=== PATIENT | male | born 1930 | race Caucasian/White ===

== ENCOUNTER 2020-10-12 09:24 | Inpatient (IN) ==
[2020-10-12] MEDS ORDERED: NITROGLYCERIN SL 0.4 MG/TAB TAB SL STA (09:29)
[2020-10-12] MEDS ORDERED: SODIUM CHLORIDE 0.9% 1000ML 500 ML IV ONE (09:30)
--- NOTE | 2020-10-12 09:36 | Emergency Department Note ---
History of Present Illness General Chief Complaint: Chest Pain Stated Complaint: Chest Pain COVID+ Time Seen by Provider: 10/12/20 09:29 Source: patient, EMS, RN notes reviewed and old records reviewed Mode of arrival: EMS Limitations: no limitations History of Present Illness Provider Complaint: chest pain Onset (ago): day(s) 1 Duration: constant Onset: after eating Pain Location: substernal and left chest Pain Radiation: LUE, back and neck Severity: moderate Current Pain Intensity: 8 Quality: + aching Relieved By: + nitroglycerin Exacerbated By: + movement Context: + recent illness (Covid 19) Associated symptoms: + dyspnea; no nausea, no vomiting, no diaphoresis, no sense of impending doom, no syncope, no palpitations, no fever, no cough and no leg swelling Treatments prior to arrival: aspirin This is an 89-year-old male who presents emergency department complaint of chest pain that started last evening. The patient reports that the pain kept him up all night and that he has not taken anything for the pain. He reports exertion makes the pain worse however immobilization makes the pain better. He was given 324 mg of aspirin in route to the hospital. The patient has a recent diagnosis of Covid pneumonia. Home Medications Medication Instructions Recorded Confirmed Type acetaminophen 650 mg PO Q6H PRN 10/12/20 10/12/20 History amoxicillin 500 mg PO TID 10/12/20 10/12/20 History benzonatate [Tessalon Perles] 100 mg PO Q8H PRN 10/12/20 10/12/20 History bisacodyl [Dulcolax (bisacodyl)] 10 mg RI DAILY PRN 10/12/20 10/12/20 History finasteride [Proscar] 5 mg PO DAILY 10/12/20 10/12/20 History melatonin 5 mg PO HS PRN 10/12/20 10/12/20 History metoprolol tartrate 50 mg PO BID 10/12/20 10/12/20 History multivitamin 1 tab PO DAILY 10/12/20 10/12/20 History omega-3 fatty acids [Jackson 3 Fish 2,000 mg PO BID 10/12/20 10/12/20 History Oil] Allergies Allergy/AdvReac Type Severity Reaction Status Date / Time Sulfa (Sulfonamide Allergy Unknown Unknown Verified 10/12/20 13:08 Antibiotics) Past Med/Surg History Medical History Acquired hemolytic anemia Epigastric pain Heartburn Hematuria Hypertension Ileus Other inflammatory diseases of prostate Type 2 diabetes mellitus Urinary retention Surgical History History of urologic surgery Social History Smoking Status: Never smoker Hx Alcohol Use: No Hx Substance Use: No Preferred Language: Urdu Communication Ability: Effective Beliefs That Will Affect Care: None Current Living Situation: Alone Other Information That Helps Us Care for You: No Feels Safe at Home: Yes Assistive Devices: None Review of Systems A total of 10 systems reviewed and were otherwise negative Physical Exam Vital Signs Vital Signs - 24 hr 10/12/20 11:45 Pulse Rate [Apical] 82 Pulse Rhythm [Apical] Regular Respiratory Rate 16 Respiratory Effort / Characteristics Non-Labored Spontaneous Respiratory Depth Normal Respiratory Pattern Regular Blood Pressure [Left Arm] 142/70 H Blood Pressure Mean [Left Arm] 94 Blood Pressure Position [Left Arm] Lying Pulse Oximetry 96 Oxygen Delivery Method Room Air VITAL SIGNS - Vital signs and nursing notes were reviewed. GENERAL - 89-year-old male appearing stated age who is in moderate distress. Communicates well with provider and answers questions appropriately. SKIN - pale in appearance HEAD - NC/AT. EYES - PERRL with EOMI bilaterally. Sclera anicteric. Palpebral conjunctiva pink and moist with no injection noted. EARS - No deformities of external structures noted on gross examination bilate rally. No pain elicited with palpation of the tragus bilaterally. External auditory canals without discharge or otorrhea. Tympanic membranes pearly nicholson without retraction or bulging. No fluid or purulent material visualized behind the TM. Handle of malleus, umbo, cone of light, pars tensa/flaccid all easily visualized. NOSE - Midline and without cyanosis. No epistaxis or purulent drainage noted. Septum midline without deviation or septal hematoma noted. MOUTH/OROPHARYNX - Without perioral cyanosis. Buccal mucosa pink and moist and without leukoplakia. Tongue midline with equal elevation of palate bilaterally. No tonsillar hypertrophy, erythema, or exudates noted. dentition noted. NECK - Neck with FROM. Supple to palpation. lymphadenopathy noted. No nuchal rigidity. LUNGS - Chest wall symmetric without accessory muscle use, intercostals retractions, or central cyanosis. Normal vesicular breath sounds CTA B/L. No wheezes, rales, or rhonchi appreciated. CARDIAC - RRR with S1/S2. No murmur, rubs, or gallops appreciated. ABDOMEN - Abdominal contour without pulsations or visible masses. BS normoactive all four quadrants. No tenderness, palpable masses, hepatosplenomegaly, or ascites noted. EXTREMITIES - No clubbing or peripheral cyanosis. No pretibial edema present. +3/5 radial, posterior tibial, and dorsalis pedis pulses palpated throughout. +5/5 strength noted in UE/LE bilaterally. NEUROLOGIC - Cranial nerves II through XII grossly intact. Sensory intact to light touch throughout. Patellar reflexes +2/4. PSYCH - A&Ox3 and cooperates fully with examiner. Pt is very pleasant and interacts well with examiner. Course Administered Medications Amoxicillin (Amoxicillin 500 Mg Cap) 500 mg PO TID [facility] Stop: 10/22/20 20:59 Last Admin: 10/13/20 07:48 Dose: 500 mg Documented by: [id number] Admin: 10/12/20 21:23 Dose: 500 mg Documented by: [id number] Aspirin (Aspirin 81 Mg Ectab) 81 mg PO [facility] Stop: 11/12/20 08:59 Last Admin: 10/13/20 07:49 Dose: 81 mg Documented by: [id number] Atorvastatin Calcium (Atorvastatin 40 Mg Tab) 40 mg PO [facility] Stop: 11/12/20 08:59 Last Admin: 10/13/20 07:50 Dose: 40 mg Documented by: [id number] Clopidogrel Bisulfate (Clopidogrel Bisulfate 75 Mg Tab) 75 mg PO [facility] Stop: 11/12/20 08:59 Last Admin: 10/13/20 07:48 Dose: 75 mg Documented by: [id number] Enoxaparin Sodium (Enoxaparin Inj 40 Mg/0.4 Ml Syr) 40 mg SQ [facility] Stop: 11/12/20 08:59 Last Admin: 10/13/20 07:51 Dose: 40 mg Documented by: [id number] Finasteride (Finasteride 5 Mg Tab) 5 mg PO DAILY [facility] Stop: 11/12/20 08:59 Last Admin: 10/13/20 07:51 Dose: 5 mg Documented by: [id number] Insulin Aspart (Insulin Aspart 100 Units/Ml 3 Ml Pen) 0 units SC Q4 [facility]; Protocol Stop: 11/11/20 15:59 Last Admin: 10/13/20 08:30 Dose: 6 units Documented by: [id number] Cosigned by: [id number] Admin: 10/13/20 04:03 Dose: Not Given Documented by: [id number] Cosigned by: [id number] Admin: 10/13/20 01:05 Dose: 3 units Documented by: [id number] Cosigned by: [id number] Admin: 10/12/20 21:25 Dose: 7 units Documented by: [id number] Cosigned by: [id number] Admin: 10/12/20 17:27 Dose: 12 units Documented by: [id number] Cosigned by: [id number] Insulin Glargine (Insulin Glargine Solostar 100 Units/Ml 3 Ml Pen) 11 units SC Q12 [facility] Stop: 11/12/20 08:59 Last Admin: 10/13/20 08:28 Dose: 11 units Documented by: [id number] Cosigned by: [id number] Lisinopril (Lisinopril 5 Mg Tab) 5 mg PO QAM [facility] Stop: 11/12/20 08:59 Last Admin: 10/13/20 07:51 Dose: 5 mg Documented by: [id number] Multivitamins (Multivitamin Tab) 1 tab PO DAILY [facility] Stop: 11/12/20 08:59 Last Admin: 10/13/20 07:49 Dose: 1 tab Documented by: [id number] Discontinued Medications Clopidogrel Bisulfate (Clopidogrel Bisulfate 300 Mg Tab) Confirm Administered Dose 600 mg .ROUTE .STK-MED ONE Stop: 10/12/20 11:29 Last Admin: 10/12/20 14:01 Dose: 600 mg Documented by: [id number] Fentanyl Citrate (Fentanyl Citrate 100 Mcg/2 Ml Vial) Confirm Administered Dose 100 mcg .ROUTE .STK-MED ONE Stop: 10/12/20 09:41 Last Increment: 10/12/20 14:00 Dose: 50 mcg Documented by: [id number] Heparin Sodium (Porcine) (Heparin (Porcine) 1000 Unit/Ml 10 Ml ([employer] Tr[employer] Use Only)) Confirm Administered Dose 10,000 units .ROUTE .STK-MED ONE Stop: 10/12/20 09:41 Last Admin: 10/12/20 14:00 Dose: 10,000 units Documented by: [id number] Heparin Sodium (Porcine) (Heparin (Porcine) 1000 Unit/Ml 10 Ml ([employer] Teacher Use Only)) Confirm Administered Dose 10,000 units .ROUTE .STK-MED ONE Stop: 10/12/20 11:27 Last Admin: 10/12/20 14:01 Dose: 2,000 units Documented by: [id number] Heparin Sodium/Sodium Chloride (Heparin In Nss Infusion 1000 Unit/500 Ml (2 U/Ml) Bag) Confirm Administered Dose 3,000 units IV .STK-MED ONE Stop: 10/12/20 09:42 Last Admin: 10/12/20 14:01 Dose: 3,000 units Documented by: [id number] Sodium Chloride (Nss 1000ml) 500 mls @ 999 mls/hr IV .Q31M ONE Stop: 10/12/20 10:00 Last Infusion: 10/12/20 10:10 Dose: 0 mls/hr Documented by: [id number] Admin: 10/12/20 09:39 Dose: 999 mls/hr Documented by: [id number] Sodium Chloride (Nss 1000ml) 1,000 mls @ 100 mls/hr IV .Q10H DAMIR Stop: 11/11/20 11:44 Last Admin: 10/13/20 02:56 Dose: 100 mls/hr Documented by: [id number] Infusion: 10/13/20 00:01 Dose: 100 mls/hr Documented by: [id number] Admin: 10/12/20 14:01 Dose: 100 mls/hr Documented by: [id number] Insulin Glargine (Insulin Glargine Solostar 100 Units/Ml 3 Ml Pen) 23 units SC NOW STA Stop: 10/12/20 14:39 Last Admin: 10/12/20 17:25 Dose: 23 units Documented by: [id number] Cosigned by: [id number] Metoprolol Succinate (Metoprolol Succ 25mg Ext Rel Tab) Confirm Administered Dose 25 mg .ROUTE .STK-MED ONE Stop: 10/12/20 13:41 Last Admin: 10/12/20 14:05 Dose: Not Given Documented by: [id number] Metoprolol Tartrate (Metoprolol Tartrate 1 Mg/Ml Vial) Confirm Administered Dose 5 mg IV .STK-MED ONE Stop: 10/12/20 13:38 Last Admin: 10/12/20 14:04 Dose: Not Given Documented by: [id number] Metoprolol Tartrate (Metoprolol Tartrate 25 Mg Tab) 12.5 mg PO ONE ONE Stop: 10/12/20 14:16 Last Admin: 10/12/20 14:50 Dose: 12.5 mg Documented by: [id number] Metoprolol Tartrate (Metoprolol Tartrate 50 Mg Tab) 50 mg PO BID DAMIR Stop: 11/11/20 20:59 Last Admin: 10/13/20 07:48 Dose: 50 mg Documented by: [id number] Admin: 10/12/20 21:24 Dose: 50 mg Documented by: [id number] Midazolam HCl (Midazolam Hcl 1 Mg/Ml 2ml Vial) Confirm Administered Dose 2 mg .ROUTE .STJumpPost-MED ONE Stop: 10/12/20 09:41 Last Admin: 10/12/20 14:01 Dose: 2 mg Documented by: [id number] Morphine Sulfate (Morphine Sulfate 2 Mg/Ml Carp) Confirm Administered Dose 2 mg .ROUTE .STJumpPost-MED ONE Stop: 10/12/20 13:40 Last Admin: 10/12/20 14:02 Dose: 2 mg Documented by: [id number] Nicardipine HCl (Nicardipine Hcl Inj 2.5 Mg/Ml 10 Ml Amp) Confirm Administered Dose 25 mg .ROUTE .STJumpPost-MED ONE Stop: 10/12/20 09:41 Last Admin: 10/12/20 14:00 Dose: 25 mg Documented by: [id number] Nitroglycerin (Nitroglycerin Sl 0.4 Mg/Tab Tab) 0.4 mg SL NOW STA Stop: 10/12/20 09:30 Last Admin: 10/12/20 09:40 Dose: 0.4 mg Documented by: [id number] Nitroglycerin/Dextrose (Nitroglycerin/D5w 100mcg/Ml 20ml Syr) Confirm Administered Dose 2,000 mcg .ROUTE .STJumpPost-MED ONE Stop: 10/12/20 09:42 Last Admin: 10/12/20 14:01 Dose: 2,000 mcg Documented by: [id number] Medical Decision Making Differential Diagnosis + fracture of rib, + pneumothorax, + stable angina, + unstable angina pectoris, + atypical chest pain, + st elevation myocardial infarction, + costochondritis, + chest pain, + biliary colic, + cardiac ischemia, + myocarditis, + pericarditis, + costochondritis, + pleurisy, + aortic dissection, + pulmonary embolism, + pneumonia, + musculoskeletal, + infections, + cholecystitis and + pancreatitis Medical Records Attestation: I reviewed the patient's medical records. Home Medications Current Medication List: was personally reviewed by me Laboratory Data Attestation: I reviewed the patient's lab results. Result diagrams: 10/13/20 05:50 10/13/20 05:50 Labs: Lab Results 10/12/20 10/12/20 10/12/20 Range/Units 09:10 09:10 09:10 WBC 6.69 (4.8-10.8) K/uL RBC 2.16 L (4.7-6.1) M/uL Hgb 8.2 L (14.0-18.0) g/dL Hct 24.3 L (42-52) % MCV 112.5 H (80-100) fL MCH 38.0 H (25-34) pg MCHC 33.7 (32-36) g/dL RDW Std Deviation 53.3 H (36.4-46.3) fL RDW Coeff of Miles 13.1 (11.5-14.5) % Plt Count 502 H (130-400) K/uL MPV 9.2 (7.4-10.4) fL Immature Gran % (Auto) 1.5 % Neut % (Auto) 39.2 % Lymph % (Auto) 25.0 % Bremer % (Auto) 34.2 % Eos % (Auto) 0.0 % Baso % (Auto) 0.1 % Neut # (Auto) 2.62 (1.4-6.5) K/uL Lymph # (Auto) 1.67 (1.2-3.4) K/uL Bremer # (Auto) 2.29 H (0.11-0.59) K/uL Eos # (Auto) 0.00 (0-0.5) K/uL Baso # (Auto) 0.01 (0-0.2) K/uL Immature Gran # (Auto) 0.10 H (0.00-0.02) K/uL Macrocytosis Present ESR (0-14) mm/hr PT 11.9 (9.0-12.0) Seconds INR 1.1 (0.9-1.1) APTT 28.2 (21.0-31.0) Seconds PTT Ratio 1.0 Activ Coag Time Kaolin (94-140) SECONDS D-Dimer 2890 H* (0-500) ug/L FEU Sodium 134 L (136-145) mmol/L Potassium 4.0 (3.5-5.1) mmol/L Chloride 102 (98-107) mmol/L Carbon Dioxide 23 (21-32) mmol/L Anion Gap 9.0 (3-11) BUN 13 (7-18) mg/dl Creatinine 0.81 (0.6-1.4) mg/dl Est Cr Clr Drug Dosing 73.3 ml/min Est GFR ( Amer) 92.0 Est GFR (Non-Af Amer) 79.4 BUN/Creatinine Ratio 16.5 (10-20) Glucose 234 H (70-99) mg/dl Calcium 9.3 (8.5-10.1) mg/dl Ferritin 216.5 (8-388) ng/ml Total Bilirubin 0.4 (0.2-1) mg/dl AST 67 H (15-37) U/L ALT 41 (12-78) U/L Alkaline Phosphatase 73 (45-117) U/L Total Creatine Kinase 474 H (39-308) U/L CK-MB (CK-2) 52.5 H (0.5-3.6) ng/ml CK/CKMB % Calc 11.1 H (0-3.0) Troponin I 7.940 H* (0-0.045) ng/ml C-Reactive Protein 1.75 H (0-0.29) mg/dl NT-Pro-B Natriuret Pep 1604 (0-1800) pg/ml Total Protein 8.0 (6.4-8.2) gm/dl Albumin 2.6 L (3.4-5.0) gm/dl Globulin 5.4 H (2.5-4.0) gm/dl Albumin/Globulin Ratio 0.5 L (0.9-2) Lipase 129 (73-393) U/L COVID-19 Eval Order SARS-CoV-2, RNA, NAAT (NEGATIVE) Blood Type Antibody Screen 10/12/20 10/12/20 10/12/20 Range/Units 09:10 09:34 09:34 WBC (4.8-10.8) K/uL RBC (4.7-6.1) M/uL Hgb (14.0-18.0) g/dL Hct (42-52) % MCV (80-100) fL MCH (25-34) pg MCHC (32-36) g/dL RDW Std Deviation (36.4-46.3) fL RDW Coeff of Miles (11.5-14.5) % Plt Count (130-400) K/uL MPV (7.4-10.4) fL Immature Gran % (Auto) % Neut % (Auto) % Lymph % (Auto) % Bremer % (Auto) % Eos % (Auto) % Baso % (Auto) % Neut # (Auto) (1.4-6.5) K/uL Lymph # (Auto) (1.2-3.4) K/uL Bremer # (Auto) (0.11-0.59) K/uL Eos # (Auto) (0-0.5) K/uL Baso # (Auto) (0-0.2) K/uL Immature Gran # (Auto) (0.00-0.02) K/uL Macrocytosis ESR 72 H (0-14) mm/hr PT (9.0-12.0) Seconds INR (0.9-1.1) APTT (21.0-31.0) Seconds PTT Ratio Activ Coag Time Kaolin (94-140) SECONDS D-Dimer (0-500) ug/L FEU Sodium (136-145) mmol/L Potassium (3.5-5.1) mmol/L Chloride (98-107) mmol/L Carbon Dioxide (21-32) mmol/L Anion Gap (3-11) BUN (7-18) mg/dl Creatinine (0.6-1.4) mg/dl Est Cr Clr Drug Dosing ml/min Est GFR ( Amer) Est GFR (Non-Af Amer) BUN/Creatinine Ratio (10-20) Glucose (70-99) mg/dl Calcium (8.5-10.1) mg/dl Ferritin (8-388) ng/ml Total Bilirubin (0.2-1) mg/dl AST (15-37) U/L ALT (12-78) U/L Alkaline Phosphatase (45-117) U/L Total Creatine Kinase (39-308) U/L CK-MB (CK-2) (0.5-3.6) ng/ml CK/CKMB % Calc (0-3.0) Troponin I (0-0.045) ng/ml C-Reactive Protein (0-0.29) mg/dl NT-Pro-B Natriuret Pep (0-1800) pg/ml Total Protein (6.4-8.2) gm/dl Albumin (3.4-5.0) gm/dl Globulin (2.5-4.0) gm/dl Albumin/Globulin Ratio (0.9-2) Lipase (73-393) U/L COVID-19 [email or web address] SARS-CoV-2, RNA, NAAT POSITIVE A* (NEGATIVE) Blood Type Antibody Screen 10/12/20 10/12/20 10/12/20 Range/Units 09:34 09:37 10:41 WBC (4.8-10.8) K/uL RBC (4.7-6.1) M/uL Hgb (14.0-18.0) g/dL Hct (42-52) % MCV (80-100) fL MCH (25-34) pg MCHC (32-36) g/dL RDW Std Deviation (36.4-46.3) fL RDW Coeff of Miles (11.5-14.5) % Plt Count (130-400) K/uL MPV (7.4-10.4) fL Immature Gran % (Auto) % Neut % (Auto) % Lymph % (Auto) % Bremer % (Auto) % Eos % (Auto) % Baso % (Auto) % Neut # (Auto) (1.4-6.5) K/uL Lymph # (Auto) (1.2-3.4) K/uL Bremer # (Auto) (0.11-0.59) K/uL Eos # (Auto) (0-0.5) K/uL Baso # (Auto) (0-0.2) K/uL Immature Gran # (Auto) (0.00-0.02) K/uL Macrocytosis ESR (0-14) mm/hr PT (9.0-12.0) Seconds INR (0.9-1.1) APTT (21.0-31.0) Seconds PTT Ratio Activ Coag Time Kaolin 219 H (94-140) SECONDS D-Dimer (0-500) ug/L FEU Sodium (136-145) mmol/L Potassium (3.5-5.1) mmol/L Chloride (98-107) mmol/L Carbon Dioxide (21-32) mmol/L Anion Gap (3-11) BUN (7-18) mg/dl Creatinine (0.6-1.4) mg/dl Est Cr Clr Drug Dosing ml/min Est GFR ( Amer) Est GFR (Non-Af Amer) BUN/Creatinine Ratio (10-20) Glucose (70-99) mg/dl Calcium (8.5-10.1) mg/dl Ferritin (8-388) ng/ml Total Bilirubin (0.2-1) mg/dl AST (15-37) U/L ALT (12-78) U/L Alkaline Phosphatase (45-117) U/L Total Creatine Kinase (39-308) U/L CK-MB (CK-2) (0.5-3.6) ng/ml CK/CKMB % Calc (0-3.0) Troponin I (0-0.045) ng/ml C-Reactive Protein (0-0.29) mg/dl NT-Pro-B Natriuret Pep (0-1800) pg/ml Total Protein (6.4-8.2) gm/dl Albumin (3.4-5.0) gm/dl Globulin (2.5-4.0) gm/dl Albumin/Globulin Ratio (0.9-2) Lipase (73-393) U/L COVID-19 Eval Order SARS-CoV-2, RNA, NAAT POSITIVE A* (NEGATIVE) Blood Type Cancelled Antibody Screen Cancelled 10/12/20 Range/Units 11:23 WBC (4.8-10.8) K/uL RBC (4.7-6.1) M/uL Hgb (14.0-18.0) g/dL Hct (42-52) % MCV (80-100) fL MCH (25-34) pg MCHC (32-36) g/dL RDW Std Deviation (36.4-46.3) fL RDW Coeff of Miles (11.5-14.5) % Plt Count (130-400) K/uL MPV (7.4-10.4) fL Immature Gran % (Auto) % Neut % (Auto) % Lymph % (Auto) % Bremer % (Auto) % Eos % (Auto) % Baso % (Auto) % Neut # (Auto) (1.4-6.5) K/uL Lymph # (Auto) (1.2-3.4) K/uL Bremer # (Auto) (0.11-0.59) K/uL Eos # (Auto) (0-0.5) K/uL Baso # (Auto) (0-0.2) K/uL Immature Gran # (Auto) (0.00-0.02) K/uL Macrocytosis ESR (0-14) mm/hr PT (9.0-12.0) Seconds INR (0.9-1.1) APTT (21.0-31.0) Seconds PTT Ratio Activ Coag Time Kaolin 213 H (94-140) SECONDS D-Dimer (0-500) ug/L FEU Sodium (136-145) mmol/L Potassium (3.5-5.1) mmol/L Chloride (98-107) mmol/L Carbon Dioxide (21-32) mmol/L Anion Gap (3-11) BUN (7-18) mg/dl Creatinine (0.6-1.4) mg/dl Est Cr Clr Drug Dosing ml/min Est GFR ( Amer) Est GFR (Non-Af Amer) BUN/Creatinine Ratio (10-20) Glucose (70-99) mg/dl Calcium (8.5-10.1) mg/dl Ferritin (8-388) ng/ml Total Bilirubin (0.2-1) mg/dl AST (15-37) U/L ALT (12-78) U/L Alkaline Phosphatase (45-117) U/L Total Creatine Kinase (39-308) U/L CK-MB (CK-2) (0.5-3.6) ng/ml CK/CKMB % Calc (0-3.0) Troponin I (0-0.045) ng/ml C-Reactive Protein (0-0.29) mg/dl NT-Pro-B Natriuret Pep (0-1800) pg/ml Total Protein (6.4-8.2) gm/dl Albumin (3.4-5.0) gm/dl Globulin (2.5-4.0) gm/dl Albumin/Globulin Ratio (0.9-2) Lipase (73-393) U/L COVID-19 Eval Order SARS-CoV-2, RNA, NAAT (NEGATIVE) Blood Type Antibody Screen ECG Data Attestation: I personally reviewed and interpreted this ECG as follows: Indication: chest pain Rate (beats per minute): 77 Rhythm: normal sinus Findings: + ST elevation (Inferior) and + left axis deviation Comparison ECG Date: from (1996) Change: the following changes noted (LAD, new st elevations) MDM Narrative Patient was seen and evaluated as above in room A4. Review was performed of nursing notes and vital signs. I did review pertinent previous visits and patient history. After obtaining a thorough history and physical examination the above work up was performed. This is an 89-year-old male who presents the emergency department complaining of chest pain. The patient is Covid positive. His EKG is concerning for a STEMI. Be based on this and the fact that the patient would like to go the cardiac [employer] a heart alert was initiated. I did discuss the case with the cardiac [employer]. The patient was given nitro with improvement in his symptoms here in the emergency department. His troponin was found to be grossly elevated at 20. While in the department, I personally reevaluated the patient several times and each time the patient was found to be resting comfortably. The patient was educated upon management, educated upon todays findings/results, educated upon importance of follow up from today's visit, educated upon symptoms in which to return, had questions answered prior to discharge, verbalized understanding, and was discharged home in good condition. An order was placed for continuous cardiac monitoring. The monitor shows a rate of 100 with Normal SInus rhythm. The patient was evaluated during a period of high volume and high acuity while the hospital was at overcapacity during the global COVID-19 pandemic, and that diagnosis was suspected/considered upon their initial presentation. Their evaluation, treatment and testing was consistent with current guidelines for patients who present with complaints or symptoms that may be related to COVID- 19. Impression & Plan STEMI (ST elevation myocardial infarction), COVID-19, Macrocytic anemia Critical Care Time I have personally spent greater than 30 minutes of critical care time in the direct management of this patient. This includes bedside care, interpretation of diagnostic studies, and testing, discussion with consultants, patient, and f amily members, and other required patient management activities. This 30 minutes is in excess of all separately billable procedures. Discharge Plan Visit Data Chief Complaint: Chest Pain Stated Complaint: Chest Pain COVID+ ED Provider: Avila Lozano Discharge Problem: STEMI (ST elevation myocardial infarction), COVID-19, Macrocytic anemia Patient Disposition: Still a Patient Discharge Instructions Interventions: ED Discharge Assessment Last Done: 10/12/20 09:53 Discharge Problem: STEMI (ST elevation myocardial infarction) Qualifiers: Involved coronary artery: unspecified coronary artery Qualified Code(s): I21.3 - ST elevation (STEMI) myocardial infarction of unspecified site
[2020-10-12] MEDS ORDERED: fentaNYL citrate 100 MCG/2 ML VIAL ONE (09:40)
[2020-10-12] MEDS ORDERED: MIDAZOLAM HCL 1 MG/ML 2ML VIAL ONE (09:40)
[2020-10-12] MEDS ORDERED: HEPARIN (PORCINE) 1000 UNIT/ML 10 ML (CATH LAB USE ONLY) ONE ×2 (09:40→11:26)
[2020-10-12] MEDS ORDERED: niCARdipine HCL INJ 2.5 MG/ML 10 ML AMP ONE (09:40)
[2020-10-12] MEDS ORDERED: NITROGLYCERIN/D5W 100MCG/ML 20ML SYR ONE (09:41)
[2020-10-12 09:53] LABS: Basophils # (auto) 0.01 K/uL (0-0.2); Basophils % (auto) 0.1 %; Hematocrit (blood only) 24.3 % (42-52); Hemoglobin 8.2 g/dL (14.0-18.0); Immature Granulocytes % (auto) 1.5 %; Lymphocytes # (auto) 1.67 K/uL (1.2-3.4); Mean Corpuscular Hgb Conc 33.7 g/dL (32-36); Mean Corpuscular Volume 112.5 fL (80-100); Mean Platelet Volume 9.2 fL (7.4-10.4); Monocytes # (auto) 2.29 K/uL (0.11-0.59); Monocytes % (auto) 34.2 %; Neutrophils # (auto) 2.62 K/uL (1.4-6.5); Neutrophils % (auto) 39.2 %; Platelet Count 502 K/uL (130-400); RDW Coefficient of Variation 13.1 % (11.5-14.5); RDW Standard Deviation 53.3 fL (36.4-46.3); Red Blood Count 2.16 M/uL (4.7-6.1); White Blood Count 6.69 K/uL (4.8-10.8)
--- NOTE | 2020-10-12 10:02 | Pre Anesthesia Assessment ---
Date of Service October 12, 2020 Pre Sedation Assessment Vital Signs Temp Pulse Resp BP Pulse Ox 10/12/20 09:45 99 H 24 154/97 H 98 10/12/20 09:43 100 10/12/20 09:42 84 20 99 10/12/20 09:41 81 100 10/12/20 09:40 82 18 163/96 H 100 10/12/20 09:39 87 22 159/92 H 100 10/12/20 09:35 90 18 99 10/12/20 09:32 91 H 21 99 10/12/20 09:30 82 17 146/85 H 98 10/12/20 09:29 91 H 17 142/110 H 96 10/12/20 09:28 84 14 94 10/12/20 09:26 98.8 F 84 26 H 146/85 H 94 Cardiovascular RRR, no murmur, no edema Respiratory normal respiratory effort, lungs clear to auscultation Pre-Sedation Airway Assessment Smoking Status: Never smoker Hx Sleep Apnea: No Hx Difficult Intubation: No Short, Thick Neck: No Thyromental Distance: > or= 3.5 Finger Breadths Oral Cavity: + WNL Mallampati Class: III ASA: ASA4 Procedure Planning Contraindications for Sedation: none Current Medications Reviewed: Yes Notes The planned sedation has been discussed with the patient. Informed Consent was obtained. I have identified the patient, determined the appropriateness of sedation and have assessed the patient immediately prior to the procedure. All medicine(s) and interventions are by my order.
--- NOTE | 2020-10-12 10:02 | Cardiac Catheterization ---
[facility] Data: Product Operations Associate Cardiac Status Clinical evaluation leading to the procedure CAD Presenation: STEMI Anginal Classification: CCS IV Heart Failure: No Cardiogenic Shock within 24 Hours: No Cardiac Arrest within 24 Hours: No Imaging Studies Past 6 Months: No Stress Studies Past 6 Months: No Diagnostic Physicians Name: Reynaldo Braswell MD Status: Emergency Closure Device Percutaneous Entry Location: Radial Closure Device: Radial Band Recommendations: PCI without planned CABG PCI Indication: Immediate PCI for STEMI First Noted: First EKG Lesion Segment Name: Mid RCA Culprit Artery: Yes Stenosis Prior to Rx (%): 99 Chronic Total Occlusion: No IVUS: No FFR: No Previously Treated Lesion: No Lesion Complexity: High/C Lesion Length (mm): 45 Thrombus Present: Yes Bifurcation Lesion: No Guidewire Across Lesion: Stenosis Post-Procedure (%): 0 Post-Procedure BRYANT Flow: 3 Devices(s) Deployed: Yes Yes Intraprocedure Events Significant Disection: No Perforation: No Cardiac Cath Procedure Full Procedure Date October 12, 2020 Pre-Procedure Diagnosis Pre-Procedure Diagnosis: STEMI AUC Score AUC Score: 9 Post-Procedure Diagnosis Post-Procedure Diagnosis: Severe CAD and Normal Intracardiac Pressures Procedure(s) Performed Procedure(s) Performed: Coronary Angiography, Left Heart Cath and Drug Eluting Stent Charter Coordinator Reynaldo Braswell MD Virtualization Engineer(s) June Estimated Blood Loss Estimated Blood Loss: 20 Medication(s) Medication(s): Clopidogrel, Fentanyl, Heparin, Lidocaine 1%, Nicardipine and Versed Summary of Findings Indication: STEMI/Heart Alert Access: 6 Fr slender right radial artery Catheters: [place], JR4 guide Findings: LM -normal caliber, no significant disease LAD -medium caliber, 40 to 50% mid segment disease, latemid segment angulated with myocardial bridging and 60% stenosis. Distal vessel without significant disease. Small D2, D3 without significant disease. Circumflex -medium caliber, 90% mid stenosis just after takeoff of OM1. 40% ostial OM1. Distal circumflex into left PLB with diffuse up to 60% disease. RCA -large caliber, dominant, mid segment heavily calcified with subtotal acute occlusion. BRYANT I flow into distal vessel. LVEDP -11 -- PCI -- Antithrombotic therapy: Heparin, clopidogrel Procedure: RCA cannulated with JR4 guide Cpc Coder 50 wire passed across lesion into distal vessel Despite use of a telescope support catheter unable to pass 2.5, 2.0 and 1.5 balloon across mid segment disease Eventually able to cross occlusion with a Corsair catheter Wire exchanged for mailman wire Mid RCA dilated with 1.5, 2.0 and 2.5 balloons Latemid into distal RCA stented with 3.0 x 22 mm Gil Second DAISY (3.0 x 38 mm [place]) placed from proximal RCA across mid segment and overlapping with proximal aspect of initially placed stent Stents post-dilated with 3.5 noncompliant balloon IC vasodilators administered for spasm Post procedure BRYANT 3 flow, stents well expanded with minimal residual stenosis. Some residual thrombus in distal right PLB. Arterial Closure: TR band Summary: 1. Inferior STEMI/subtotal, heavily calcified mid RCA occlusion 2. Severe non-culprit coronary artery disease -90% mid circumflex. 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 Normal intracardiac filling pressure 4. Successful PCI of proximal to distal RCA with 2 long drug-eluting stents (3.0 x 38, 3.0 x 22 [place]; postdilated with 3.5 NC). Recommendations: Admit to ICU for continued monitoring Loaded with clopidogrel 600 mg in Product Operations Associate Ideally continue to antiplatelet therapy for 1 year. If recurrent GI bleeding/anemia issues interruption at 1 month could be considered Trend troponins until peak, Check Echo Uptitrate beta-dione/RONAK as BP allows High-dose statin Consult cardiac Rehab Plan to medically manage residual coronary artery disease unless recurrent symptoms. Hemodynamics Rest Ao:: 102/55/77 Final Ao: 155/71/106 LV: 159/11 Recommendations Recommendations: PCI without planned CABG Specimens Specimens: None Radiation Exposure (mGy) 4705 Contrast (mls) 110 Fluids (cc crystalloids) Fluids (cc crystalloids): 164 Drains Drains: None Anesthesia Moderate Procedural Complication(s) None Disposition ICU I attest to the content of the Intraoperative Record and any orders documented therein. Any exceptions are noted below. [facility] Card Cath Procedure Codes Cardiac Catheterization Procedure 1: Cardiovascular Cath Procedures: 72246 Coronaries and LHC (+/-LV) Moderate Sedation Procedure 1: Sedation/Anesthesia: 36958 Mod Sedation by the same physician;Init15 Min Child Age 5 & Up Procedure 2: Sedation/Anesthesia: 75839 Mod Sedation by the same physician; Ea [id number] Minutes Stenting Procedure 1: Cardiovascular Stent Procedures: 97031 Perc transluminal revascularization of acute sub/total occl, aMI PG Care Time/CCT Total # of Minutes Spent Total Time Spent with Patient: Total time spent is greater than 50% in coordination of care (as documented) at patient's floor/unit and/or counseling patient:
--- NOTE | 2020-10-12 10:07 | Cardiology Consultation ---
Date of Consultation October 12, 2020 Assessment & Plan (1) STEMI (ST elevation myocardial infarction): Presentation consistent with inferior STEMI and feel risk/benefits favor proceeding with emergent cardiac catheterization and likely primary PCI. Discussed risks, benefits, alternatives of procedure with patient and his daughter including possible recurrent GI bleeding if were to need anticoagulation, antiplatelet therapy. They wish to proceed. Further recommendations pending findings of coronary angiography. History of Present Illness Attending Physician: Reynaldo Braswell MD History of Present Illness Mr. Lara is a 89-year-old man here with acute chest pain and ECG concerning for acute DC. Patient seen emergently in the ED after heart alert activated on arrival. No reported cardiac history. Cardiac risk factors include type 2 diabetes. Other medical issues include anemia with prior history of GI bleeding and question of hemolytic anemia. Patient was recently admitted to [facility] in the setting of GI bleed, Covid19 infection. Post hospitalization has been at [facility] for rehab. Chest pain began yesterday and has been on and off all night. Has never had similar symptoms in the past. Current chest pain 7 out of 10. Denies recent recurrent GI bleeding. ECG on arrival showed sinus rhythm with inferior ST elevations. Patient History Social History Smoking Status: Never smoker Preferred Language: Sinhala Feels Safe at Home: Yes Review of Systems Review of Systems: Not obtained in the setting of emergency situation Physical Exam Physical Exam: General: Uncomfortable, no acute distress HEENT: Sclerae anicteric, mucous membranes moist Lungs: Clear anteriorly Cardiac: Tachycardic, regular Abdomen: Soft, nontender Extremities: Warm, well perfused, no edema. 2+ radial pulses Skin: Pale Neuro: Nonfocal Psych: Alert orient x3, normal affect and mood Results & Data ([facility]) Vital Signs (Past 12 Hours) Vital Signs Temp Pulse Resp BP Pulse Ox 10/12/20 09:45 99 H 24 154/97 H 98 10/12/20 09:43 100 10/12/20 09:42 84 20 99 10/12/20 09:41 81 100 10/12/20 09:40 82 18 163/96 H 100 10/12/20 09:39 87 22 159/92 H 100 10/12/20 09:35 90 18 99 10/12/20 09:32 91 H 21 99 10/12/20 09:30 82 17 146/85 H 98 10/12/20 09:29 91 H 17 142/110 H 96 10/12/20 09:28 84 14 94 10/12/20 09:26 98.8 F 84 26 H 146/85 H 94 PG Care Time/CCT Total # of Minutes Spent Total Time Spent with Patient: Total time spent is greater than 50% in coordination of care (as documented) at patient's floor/unit and/or counseling patient: Coding Level of Care Code 90422 Initial Inpt Care Lvl 3 Diagnoses STEMI (ST elevation myocardial infarction) I21.3
[2020-10-12 10:09] LABS: Albumin Level 2.6 gm/dl (3.4-5.0); BUN Creatinine Ratio 16.5 (10-20); C Reactive Protein 1.75 mg/dl (0-0.29); Calcium 9.3 mg/dl (8.5-10.1); Creatinine Clr Calc Pharmacy 73.3 ml/min; Est GFR (Non-African American) 79.4
[2020-10-12 10:17] LABS: INR 1.1 (0.9-1.1); Partial Thromboplastin Time 28.2 Seconds (21.0-31.0); Prothrombin Time 11.9 Seconds (9.0-12.0)
[2020-10-12 10:23] LABS: Albumin Globulin Ratio 0.5 (0.9-2); Bilirubin,Total 0.4 mg/dl (0.2-1); Creatine Kinase MB 52.5 ng/ml (0.5-3.6); Ferritin 216.5 ng/ml (8-388); Globulin 5.4 gm/dl (2.5-4.0); Troponin I 7.94 ng/ml (0-0.045)
[2020-10-12 10:36] LABS: D Dimer 2890 ug/L FEU (0-500)
[2020-10-12 10:45] LABS: Macrocytosis Present
[2020-10-12] MEDS ORDERED: CLOPIDOGREL BISULFATE 300 MG TAB ONE (11:28)
[2020-10-12] MEDS ORDERED: ACETAMINOPHEN 325 MG TAB PO PRN (11:41)
[2020-10-12] MEDS ORDERED: ONDANSETRON INJ 2 MG/ML 2 ML VIAL IV PRN (11:41)
[2020-10-12] MEDS ORDERED: ICU PROTOCOL FOR HYPERGLYCEMIA PRN (11:46)
--- NOTE | 2020-10-12 11:56 | Post Anesthesia Assessment ---
Date of Service October 12, 2020 Post Sedation Assessment Vital Signs Temp Pulse Resp BP Pulse Ox 10/12/20 09:45 99 H 24 154/97 H 98 10/12/20 09:43 100 10/12/20 09:42 84 20 99 10/12/20 09:41 81 100 10/12/20 09:40 82 18 163/96 H 100 10/12/20 09:39 87 22 159/92 H 100 10/12/20 09:35 90 18 99 10/12/20 09:32 91 H 21 99 10/12/20 09:30 82 17 146/85 H 98 10/12/20 09:29 91 H 17 142/110 H 96 10/12/20 09:28 84 14 94 10/12/20 09:26 98.8 F 84 26 H 146/85 H 94 Recovery Score Activity: Moves 4 extremities Respiration: Deep Breath/Cough Circulation: +/-20% PreAnes Value Consciousness: Fully Awake Oxygen Saturation: O2 needed for >90% Discharge Sedation Level of Care: Fast Track Phase II Post Sedation Plan On clinical assessment, the patient appears to have tolerated the sedation without complications. Patient is recovering as anticipated. Patient will continue to be monitored by nursing and may be discharged when sedation discharge criteria are met per below protocol. Upon Completions of procedure up to 15 minutes continue every 5 minute vital signs and the P.A.R. score; then discharge to a Phase I or Fast Track to Phase I I per the following guidelines: * Discharge Patient to appropriate Phase II area if PAR is 8 or greater or return to pre- procedure baseline. The post - procedure orders will be as directed. * If PAR score is less than 8 or not return to pre-procedure baseline then patient will follow Phase I monitoring till PAR is reached for Phase II. The Phase I may be done in procedure room or may call to secure a Phase I area. * If naloxone or flumazenil are used for reversal, hold in Phase I for continued monitoring from when last reversal dose was given for a minimum of 60 minutes or longer pending the nurse and/or physician discretion of patient condition before discharge to Phase II. Please call the Sedation Physician to re-evaluate and complete post-note for discharge to Phase II area. Do NOT discharge from procedure sedation or Phase 1 until post- sedation evaluation note is complete by procedure /sedation MD Sedation Discharge Instructions to be given to the patient at discharge to home.
--- NOTE | 2020-10-12 12:54 | History & Physical Report ---
Date of Service October 12, 2020 Assessment & Plan (1) STEMI (ST elevation myocardial infarction): Management per cardiology with aspirin, Plavix, metoprolol, lisinopril, atorvastatin. s/p PCI with x2 DAISY to RCA, severe non-culprit CAD LDL and HbA1C with AM labs TTE Trend troponins Appreciate cardiology management (2) COVID-19: Diagnosis 09/30. Symptoms suspected 2-3 days prior to this but unclear onset. CXR pending (3) Hematuria: Avoid Wright catheter if possible to avoid further bleeding of his prostate. Continue antibiotics (amoxicillin) for "complicated UTI" (4) Other inflammatory diseases of prostate: Unclear specific diagnosis from [facility]. HIM request for [facility] discharge summary. (5) Hypertension: Continue his usual dose of metoprolol tartrate 50mg PO BID in addition to lisinopril (6) Type 2 diabetes mellitus: HbA1c with a.m. labs Hold metformin Consult pharmacy for glycemic control with basal bolus insulin (7) Ileus: Notable history of this. Monitor BMs closely. (8) Urinary retention: Recent history of this secondary to hematuria with clots. Bladder scan q shift. Call provider if PVR > 400ml. (9) Macrocytic anemia: History of hemolytic anemia per penitentiary documentation however history of this is unclear. Hgb appears stable from his discharge values at [facility]. Monitor with CBC in AM. HIM request for [facility] discharge summary. (10) DVT prophylaxis: If no gross hematuria overnight can start lovenox 40mg SQ QAM. Admission and Anticipated Discharge Date Admission Date: 10/12/2020 History of Present Illness Chief Complaint: Chest pain Primary Care Provider: [facility] Abdirahman Lara is an 89-year-old male with type 2 diabetes who presents to the ER with chest pain. The patient is very hard of hearing and is unable to give me much history. He reports chest pain started last night and has been ongoing throughout the night, severity 10/10 at worse, substernal, no radiation, unknown diaphoresis/nausea/SOB. He tells me he was in [facility] for 3 to 4 weeks however this was disputed by his daughter who reports he was there for 7 days (awaiting [facility] discharge summary on admission). Discussed care with his daughter Nimco over the phone. She reports losing her mother (Mr. Lara's ) just in July. The patient lives alone and was getting better after grieving. He walks to the store regularly without any chest pain or shortness of breath and still dives his car. He was hospitalized in [place] on September 29 for hematuria which comes and goes for a lot of his life. 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 He was initially treated with a three-way catheter and frequent flushes however eventually had cauterization. He tested positive for COVID-19 on September 30, as far as his daughter is aware this was for asymptomatic testing prior to urological surgery. He was discharged to [facility] for rehabilitation on October 07 2020. Discussed with lab in [facility] - hemoglobin 8.2 on discharge from [facility] (lowest during hospitalization 7.7). His daughter reports he had no blood transfusions. Per [facility] documentation he was on amoxicillin 500 mg 3 times daily for UTI. In the ER the patient went directly to the cardiac Aeronautical Research Engineer due to ST elevations in inferior leads. Heavily calcified mid RCA occlusion with successful PCI of proximal to distal RCA with 2 long drug-eluting stents. Severe additional non- culprit coronary artery disease. The patient was seen in recovery of the cardiac Aeronautical Research Engineer and currently is having no chest pain. Allergies Allergy/AdvReac Type Severity Reaction Status Date / Time Sulfa (Sulfonamide Allergy Unknown Unknown Verified 10/12/20 13:08 Antibiotics) Home Medications Medication Instructions Recorded Confirmed Type acetaminophen 650 mg PO Q6H PRN 10/12/20 10/12/20 History amoxicillin 500 mg PO TID 10/12/20 10/12/20 History benzonatate [Tessalon Perles] 100 mg PO Q8H PRN 10/12/20 10/12/20 History bisacodyl [Dulcolax (bisacodyl)] 10 mg [place] DAILY PRN 10/12/20 10/12/20 History finasteride [Proscar] 5 mg PO DAILY 10/12/20 10/12/20 History melatonin 5 mg PO HS PRN 10/12/20 10/12/20 History metoprolol tartrate 50 mg PO BID 10/12/20 10/12/20 History multivitamin 1 tab PO DAILY 10/12/20 10/12/20 History omega-3 fatty acids [[place] 3 Fish 2,000 mg PO BID 10/12/20 10/12/20 History Oil] Past Med/Surg History Medical History (Updated 10/12/20 @ 20:16 by Adonay Hook MD) Acquired hemolytic anemia Epigastric pain Heartburn Hematuria Hypertension Ileus Other inflammatory diseases of prostate Type 2 diabetes mellitus Urinary retention Surgical History (Updated 10/12/20 @ 13:11 by Adonay Hook MD) History of urologic surgery Social History Smoking Status: Never smoker Hx Alcohol Use: No Hx Substance Use: No Preferred Language: Persian Communication Ability: Effective Beliefs That Will Affect Care: None Current Living Situation: Alone Other Information That Helps Us Care for You: No Feels Safe at Home: Yes Assistive Devices: None Review of Systems Review of Systems: All systems reviewed & are unremarkable except as noted in HPI & below Physical Exam Constitutional: well developed and well nourished; no acute distress Eyes: + anicteric sclerae; normal pupil size ENMT: external ear and nose normal, oropharynx normal Neck: trachea midline Respiratory: normal respiratory effort and able to speak in complete sentences; no respiratory distress Auscultation: lungs clear to auscultation bilaterally; no diminished lung sounds, no crackles and no wheezes Cardiovascular: RRR, no murmur, no edema (occasional skipped beats) Gastrointestinal (Abdomen): normal bowel sounds, soft, nontender, no hepatosplenomegaly Musculoskeletal: no cyanosis or clubbing, extremities motor strength 5/5 Skin: no rashes, warm and dry Neurologic: moves all extremities and awake; not confused Psychiatric: A+Ox3, euthymic affect Genitourinary: no CVA tenderness Lymphatic: no cervical or axillary lymphadenopathy Results & Data Results & Data ([facility]) Vital Signs (Past 12 Hours) Vital Signs Temp Pulse Pulse Resp BP BP Pulse Ox 10/12/20 12:45 87 18 166/80 H 96 10/12/20 12:32 83 18 141/83 H 96 10/12/20 12:30 83 18 166/80 H 96 10/12/20 12:15 82 16 154/92 H 97 10/12/20 12:00 86 16 143/83 H 97 10/12/20 11:45 82 16 142/70 H 96 10/12/20 09:45 99 H 24 154/97 H 98 10/12/20 09:43 100 10/12/20 09:42 84 20 99 10/12/20 09:41 81 100 10/12/20 09:40 82 18 163/96 H 100 10/12/20 09:39 87 22 159/92 H 100 10/12/20 09:35 90 18 99 10/12/20 09:32 91 H 21 99 10/12/20 09:30 82 17 146/85 H 98 10/12/20 09:29 91 H 17 142/110 H 96 10/12/20 09:28 84 14 94 10/12/20 09:26 37.1 C 84 26 H 146/85 H 94 ECG Indication: other Rate (beats per minute): 89 Rhythm: normal sinus Findings: + PVC and + ST elevation (Inferior) Comparison ECG Date: from (December 31, 1996) Change: the following changes noted (Acute ischemic changes with ST elevation is new) Code Status & VTE Plan Code Status DNR/DNI as discussed with the patient and daughter VTE Prophylaxis Plan VTE Prophylaxis will be ordered: Yes PG Care Time/CCT Total # of Minutes Spent Total Time Spent with Patient: Total time spent is greater than 50% in coordination of care (as documented) at patient's floor/unit and/or counseling patient: Coding Level of Care Code 16671 Initial Inpt Care Lvl 3 Diagnoses STEMI (ST elevation myocardial infarction) I21.3 COVID-19 U07.1 Hematuria R31.9 Other inflammatory diseases of prostate N41.8 Hypertension I10 Type 2 diabetes mellitus E11.9 Ileus K56.7 Urinary retention R33.9 Macrocytic anemia D53.9 DVT prophylaxis Z29.9
[2020-10-12] MEDS ORDERED: METOPROLOL TARTRATE 1 MG/ML VIAL IV ONE (13:37)
[2020-10-12] MEDS ORDERED: MoRPHine SULFATE 2 MG/ML CARP IV PRN (13:37)
[2020-10-12] MEDS ORDERED: MoRPHine SULFATE 2 MG/ML CARP ONE (13:39)
[2020-10-12] MEDS ORDERED: METOPROLOL SUCC 25MG EXT REL TAB ONE (13:40)
[2020-10-12] MEDS: SODIUM CHLORIDE 0.9% 1000ML 1,000 ML IV SCH (14:01)
--- NOTE | 2020-10-12 14:12 | Electrocardiogram Report ---
Test Reason : Blood Pressure : / mmHG Vent. Rate : 077 BPM Atrial Rate : 077 BPM P-R Int : 198 ms QRS Dur : 088 ms QT Int : 414 ms P-R-T Axes : -53 -36 054 degrees QTc Int : 468 ms Unusual P axis, possible ectopic atrial rhythm with occasional Premature ventricular complexes Left axis deviation Inferior infarct (cited on or before 12-OCT-2020) ACUTE [place] / STEMI Consider right ventricular involvement in acute inferior infarct Abnormal ECG When compared with ECG of 31-DEC-1996 13:10, Significant changes have occurred Confirmed by Zackery Cherry ([id number]) on 10/12/2020 2:12:40 PM Referred By: [facility] Confirmed By:Zackery Cherry
[2020-10-12] MEDS ORDERED: METOPROLOL TARTRATE 25 MG TAB PO ONE (14:15)
--- NOTE | 2020-10-12 14:27 | Electrocardiogram Report ---
Test Reason : Blood Pressure : / mmHG Vent. Rate : 089 BPM Atrial Rate : 089 BPM P-R Int : 186 ms QRS Dur : 084 ms QT Int : 378 ms P-R-T Axes : -54 -37 018 degrees QTc Int : 459 ms Unusual P axis, possible ectopic atrial rhythm with undetermined rhtyhm irregularity Left axis deviation Subacute Inferior infarct (cited on or before 12-OCT-2020) Abnormal ECG When compared with ECG of 12-OCT-2020 09:26, (unconfirmed) Premature ventricular complexes are no longer Present Serial changes of evolving Inferior infarct Present Confirmed by Zackery Cherry ([id number]) on 10/12/2020 2:27:26 PM Referred By: [facility] Confirmed By:Zackery Cherry
[2020-10-12] MEDS ORDERED: PHARMACY GLYCEMIC MGMT CONSULT SCH (14:37)
[2020-10-12] MEDS ORDERED: INSULIN GLARGINE SOLOSTAR 100 UNITS/ML 3 ML PEN SC STA (14:38)
--- NOTE | 2020-10-12 15:01 | Pharmacy Report ---
Pharmacy Glycemic Short Note 2 - Date of Service October 12, 2020 - Glycemic Short BSG Results (Last 24 hours): 10/12/20 09:10 Glucose 234 H OUTPATIENT ANTIDIABETIC REGIMEN: * N/A * A1c = ? ASSESSMENT: * Type 2 diabetic admitted to ICU following STEMI, now s/p DAISY x 2 to RCA. Patient was also found to be COVID19 + * Patient did not appear to be taking any medications for DM prior to admission. We also do not have an A1c to determine if current hyperglycemia is stress induced for patient's baseline. Will check A1c w/ AM labs * Will initiate SQ basal/bolus regimen based upon patient's weight. Will provi de a total daily insulin dose of ~0.5units/kg/day, however rather than giving large doses of basal insulin, will utilize a Novolog dose that provides some of this "basal" requirement Q 4 hrs (see Novolog scale) * Steroids have not yet been ordered for this patient. If steroids are initiated due to O2 sats, NPH insulin will likely be added (~0.3-0.4units/kg per dose of dexamethasone 6mg IV) PLAN FOR INPATIENT GLYCEMIC CONTROL: * Check A1c w/ next lab draw * Basal insulin * Lantus 23 units SQ x 1, then 11 units SQ BID starting tomorrow AM. HOLD if BSG less than 110 * Bolus insulin PLAN FOR DISCHARGE: * TO BE DETERMINED
[2020-10-12] MEDS ORDERED: GLUCAGON FOR INJ 1 MG VIAL IM PRN (16:30)
[2020-10-12] MEDS ORDERED: GLUCOSE 40% GEL 15 GM TUBE PO PRN (16:30)
[2020-10-12] MEDS ORDERED: CARBOHYDRATES FOR HYPOGLYCEMIA PO PRN (16:30)
[2020-10-12] MEDS ORDERED: DEXTROSE 50% 50 ML SYRINGE IV PRN (16:30)
[2020-10-12] MEDS ORDERED: GLUCOSE 10 TABS/TUBE PO PRN (16:30)
--- NOTE | 2020-10-12 16:40 | XCELERA ---
[id number]
[2020-10-12] MEDS: INSULIN ASPART 100 UNITS/ML 3 ML PEN SC SCH ×2 (17:27→21:25)
--- NOTE | 2020-10-12 20:04 | XRay Report ---
XR chest 1V portable CLINICAL HISTORY: Atypical chest pain. COMPARISON STUDY: No previous studies for comparison. FINDINGS: Lung volumes are normal. There is no pneumothorax or pleural effusion. Note is made of mult ifocal airspace opacities within the left mid and lower lung. Mild cardiomegaly is noted without evid ence for pulmonary edema. IMPRESSION: Multifocal left lung airspace opacities which favor an infectious process. Radiographic follow-up is recommended. ACT 112: Negative or not required by law. Electronically signed by: Rad Gonzalez M.D. 10/12/2020 8:02 PM
[2020-10-12] MEDS ORDERED: METOPROLOL TARTRATE 25 MG TAB PO SCH (21:00)
[2020-10-12] MEDS: AMOXICILLIN 500 MG CAP PO SCH (21:23)
[2020-10-12] MEDS: METOPROLOL TARTRATE 50 MG TAB PO SCH (21:24)
[2020-10-13] MEDS: INSULIN ASPART 100 UNITS/ML 3 ML PEN SC SCH ×6 (01:05→20:42)
[2020-10-13 01:53] LABS: Appearance Urine Cloudy (Clear); Bacteria Urine Automated Negative (Negative); Bilirubin Urine Negative (Negative); Blood Urine 3+ (Negative); Color Urine Dark Yellow; Glucose Urine UA 2+ (Negative); Ketones Urine Trace (Negative); Leukocyte Esterase Urine Trace (Negative); Nitrite Urine Negative (Negative); Protein Urine 2+ (Negative); RBC Urine Automated >30 /hpf (0-4); Specific Gravity Urine 1.027 (1.000-1.030); Urobilinogen Urine Negative (Negative)
[2020-10-13] MEDS: SODIUM CHLORIDE 0.9% 1000ML 1,000 ML IV SCH (02:56)
[2020-10-13 06:41] LABS: Mean Corpuscular Hgb Conc 33.5 g/dL (32-36); Mean Platelet Volume 9.1 fL (7.4-10.4); Platelet Count 420 K/uL (130-400)
[2020-10-13 07:15] LABS: Hematocrit (blood only) 25.1 % (42-52); Hemoglobin 8.4 g/dL (14.0-18.0); Mean Corpuscular Hemoglobin 38.2 pg (25-34); Mean Corpuscular Volume 114.1 fL (80-100); RDW Coefficient of Variation 13.6 % (11.5-14.5); RDW Standard Deviation 55.1 fL (36.4-46.3); White Blood Count 11.85 K/uL (4.8-10.8)
[2020-10-13 07:18] LABS: ALC (manual) 1.14 K/uL (1.2-3.4); ANC (manual) 5.76 K/uL (1.4-6.5); BUN Creatinine Ratio 17.3 (10-20); Calcium 9.2 mg/dl (8.5-10.1); Creatinine Clr Calc Pharmacy 88.6 ml/min; Est GFR (African American) 99.4; Est GFR (Non-African American) 85.8; Lymphocytes # (manual) 1.14 K/uL (1.2-3.4); Lymphocytes % (manual) 9.6 %; Macrocytosis Present; Metamyelocytes # (manual) 0.11 K/uL (0-0); Metamyelocytes % (manual) 0.9 %; Monocytes # (manual) 4.85 K/uL (0.11-0.59); Monocytes % (manual) 40.9 %; Neutrophils # (manual) 5.76 K/uL (1.4-6.5); Neutrophils % (manual) 48.6 %; Potassium 3.8 mmol/L (3.5-5.1)
[2020-10-13 07:20] LABS: Estimated Average Glucose 183 mg/dl
[2020-10-13] MEDS: METOPROLOL TARTRATE 50 MG TAB PO SCH (07:48)
[2020-10-13] MEDS: CLOPIDOGREL BISULFATE 75 MG TAB PO SCH (07:48)
[2020-10-13] MEDS: AMOXICILLIN 500 MG CAP PO SCH ×3 (07:48→19:28)
[2020-10-13] MEDS: MULTIVITAMIN TAB PO SCH (07:49)
[2020-10-13] MEDS: ASPIRIN 81 MG ECTAB PO SCH (07:49)
[2020-10-13] MEDS: ATORVASTATIN 40 MG TAB PO SCH (07:50)
[2020-10-13] MEDS: lisinopril 5 MG TAB PO SCH (07:51)
[2020-10-13] MEDS: FINASTERIDE 5 MG TAB PO SCH (07:51)
[2020-10-13] MEDS: INSULIN GLARGINE SOLOSTAR 100 UNITS/ML 3 ML PEN SC SCH ×2 (08:28→20:42)
[2020-10-13] MEDS ORDERED: ENOXAPARIN INJ 40 MG/0.4 ML SYR SQ SCH (09:00)
--- NOTE | 2020-10-13 09:39 | Hospitalist Progress Note ---
Date of Service October 13, 2020 Assessment & Plan (1) STEMI (ST elevation myocardial infarction): Management per cardiology with aspirin, Plavix, metoprolol, lisinopril, atorvastatin will increase metoprolol to 75mg BID s/p PCI with x2 DAISY to RCA, severe non-culprit CAD LDL at goal of 47 HbA1c high at 8% await echo today troponin still rising, up to 20 from 15 yesterday Appreciate cardiology management (2) COVID-19: Diagnosis 09/30. Symptoms suspected 2-3 days prior to this but unclear onset. CXR with infiltrates, subtle on 2L NC with some mild dyspnea will give Dexamethasone today with NPH insulin if he quickly titrates off oxygen then can stop dexamethasone (3) Hematuria: Avoid Wright catheter if possible to avoid further bleeding of his prostate. 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 HIM request for [facility] discharge summary. (5) Hypertension: Continue lisinopril increase metoprolol to 75mg BID for better HR control, resting HR is 80-100 this morning (6) Type 2 diabetes mellitus: HbA1c 8% Hold metformin Basal bolus regimen ordered will give NPH 36 units with dexamethasone this morning monitor for hyperglycemia (7) Ileus: Notable history of this. Monitor BMs closely. (8) Urinary retention: Recent history of this secondary to hematuria with clots. Bladder scan q shift. Call provider if PVR > 400ml. 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 Hgb appears stable from his discharge values at [facility]. Monitor with CBC in AM. HIM request for [facility] discharge summary. (10) DVT prophylaxis: heparin SC Admission and Anticipated Discharge Date Admission Date: October 12, 2020 Subjective patient is feeling well, has very slight chest pain with a deep breath, but no chest pressure this morning no nausea, no diaphoresis, no chills feels a little short of breath, no cough reviewed CXR, has subtle infiltrates due to viral pneumonia discussed giving him some dexamethasone since he is on 2L NC, he agrees HR is 80-100 on monitor, sinus rhythm, will increase metoprolol to 75 BID reviewed chart and labs, trop up to 20, Cr is 0.67 LDL 47 and A1c 8% Review of Systems Review of Systems: All systems reviewed & are unremarkable except as noted in Subjective Physical Exam Constitutional: WD/WN, vitals as above + frail appearing Neck: trachea midline, no thyromegaly Respiratory: normal respiratory effort, lungs clear to auscultation Cardiovascular: RRR, no murmur, no edema Gastrointestinal (Abdomen): normal bowel sounds, soft, nontender, no hepatosplenomegaly Musculoskeletal: no cyanosis or clubbing, extremities motor strength 5/5 Skin: no rashes, warm and dry Neurologic: patellar DTR's 2+ bilat, sensation intact and PERRL, EOMI, accommodation nl, no face palsy, no dysarthria Psychiatric: A+Ox3, euthymic affect Lymphatic: no cervical or axillary lymphadenopathy Results & Data Results & Data ([facility]) Vital Signs (Past 12 Hours) Vital Signs Temp Pulse Resp BP Pulse Ox 10/13/20 07:57 36.9 C 10/13/20 07:42 102 H 28 H 130/83 98 10/13/20 07:00 98 H 26 H 97 10/13/20 06:00 108 H 24 157/83 H 95 10/13/20 05:00 96 H 24 133/79 97 10/13/20 04:00 36.9 C 100 H 24 133/74 97 10/13/20 03:00 99 H 28 H 127/77 97 10/13/20 02:00 90 25 H 143/67 H 97 10/13/20 01:00 86 24 144/77 H 95 10/13/20 00:00 36.8 C 87 26 H 135/76 98 10/12/20 23:00 82 26 H 130/78 98 10/12/20 22:00 89 24 144/75 H 98 Laboratory Results Laboratory Results - last 24 hr 10/12/20 10/12/20 10/12/20 09:10 09:10 09:10 WBC 6.69 RBC 2.16 L Hgb 8.2 L Hct 24.3 L MCV 112.5 H MCH 38.0 H MCHC 33.7 RDW Std Deviation 53.3 H RDW Coeff of Miles 13.1 Plt Count 502 H MPV 9.2 Immature Gran % (Auto) 1.5 Neut % (Auto) 39.2 Lymph % (Auto) 25.0 Porter % (Auto) 34.2 Eos % (Auto) 0.0 Baso % (Auto) 0.1 Neut # (Auto) 2.62 Lymph # (Auto) 1.67 Porter # (Auto) 2.29 H Eos # (Auto) 0.00 Baso # (Auto) 0.01 Immature Gran # (Auto) 0.10 H Neutrophils % (Manual) Lymphocytes % (Manual) Monocytes % (Manual) Metamyelocytes % (Man) Neutrophils # (Manual) Total Absolute Neuts Lymphocytes # (Manual) Total Abs Lymphocytes Monocytes # (Manual) Metamyelocytes # (Man) Macrocytosis Present ESR PT 11.9 INR 1.1 APTT 28.2 PTT Ratio 1.0 Activ Coag Time Kaolin D-Dimer 2890 H* Sodium 134 L Potassium 4.0 Chloride 102 Carbon Dioxide 23 Anion Gap 9.0 BUN 13 Creatinine 0.81 Est Cr Clr Drug Dosing 73.3 Est GFR ( Amer) 92.0 Est GFR (Non-Af Amer) 79.4 BUN/Creatinine Ratio 16.5 Glucose 234 H POC Glucose Estimat Average Glucose Hemoglobin A1c Calcium 9.3 Magnesium Ferritin 216.5 Total Bilirubin 0.4 AST 67 H ALT 41 Alkaline Phosphatase 73 Total Creatine Kinase 474 H CK-MB (CK-2) 52.5 H CK/CKMB % Calc 11.1 H Troponin I 7.940 H* C-Reactive Protein 1.75 H NT-Pro-B Natriuret Pep 1604 Total Protein 8.0 Albumin 2.6 L Globulin 5.4 H Albumin/Globulin Ratio 0.5 L Triglycerides Cholesterol LDL Cholesterol, Calc VLDL Cholesterol, Calc HDL Cholesterol Cholesterol/HDL Ratio Lipase 129 Procalcitonin Urine Color Urine Appearance Urine pH Ur Specific [place] Urine Protein Urine Glucose (UA) Urine Ketones Urine Blood Urine Nitrite Urine Bilirubin Urine Urobilinogen Ur Leukocyte Esterase Urine WBC (Auto) Urine RBC (Auto) U Hyaline Cast (Auto) U Epithel Cells (Auto) Urine Bacteria (Auto) Nasal Screen MRSA (PCR) COVID-19 Eval Order SARS-CoV-2, RNA, NAAT Blood Type Antibody Screen 10/12/20 10/12/20 10/12/20 09:10 09:34 09:34 WBC RBC Hgb Hct MCV MCH MCHC RDW Std Deviation RDW Coeff of Miles Plt Count MPV Immature Gran % (Auto) Neut % (Auto) Lymph % (Auto) Porter % (Auto) Eos % (Auto) Baso % (Auto) Neut # (Auto) Lymph # (Auto) Porter # (Auto) Eos # (Auto) Baso # (Auto) Immature Gran # (Auto) Neutrophils % (Manual) Lymphocytes % (Manual) Monocytes % (Manual) Metamyelocytes % (Man) Neutrophils # (Manual) Total Absolute Neuts Lymphocytes # (Manual) Total Abs Lymphocytes Monocytes # (Manual) Metamyelocytes # (Man) Macrocytosis ESR 72 H PT INR APTT PTT Ratio Activ Coag Time Kaolin D-Dimer Sodium Potassium Chloride Carbon Dioxide Anion Gap BUN Creatinine Est Cr Clr Drug Dosing Est GFR ( Amer) Est GFR (Non-Af Amer) BUN/Creatinine Ratio Glucose POC Glucose Estimat Average Glucose Hemoglobin A1c Calcium Magnesium Ferritin Total Bilirubin AST ALT Alkaline Phosphatase Total Creatine Kinase CK-MB (CK-2) CK/CKMB % Calc Troponin I C-Reactive Protein NT-Pro-B Natriuret Pep Total Protein Albumin Globulin Albumin/Globulin Ratio Triglycerides Cholesterol LDL Cholesterol, Calc VLDL Cholesterol, Calc HDL Cholesterol Cholesterol/HDL Ratio Lipase Procalcitonin Urine Color Urine Appearance Urine pH Ur Specific [place] Urine Protein Urine Glucose (UA) Urine Ketones Urine Blood Urine Nitrite Urine Bilirubin Urine Urobilinogen Ur Leukocyte Esterase Urine WBC (Auto) Urine RBC (Auto) U Hyaline Cast (Auto) U Epithel Cells (Auto) Urine Bacteria (Auto) Nasal Screen MRSA (PCR) COVID-19 Eval Order Covid19 IDNow [facility] SARS-CoV-2, RNA, NAAT POSITIVE A* Blood Type Antibody Screen 10/12/20 10/12/20 10/12/20 09:34 09:37 10:41 WBC RBC Hgb Hct MCV MCH MCHC RDW Std Deviation RDW Coeff of Miles Plt Count MPV Immature Gran % (Auto) Neut % (Auto) Lymph % (Auto) Porter % (Auto) Eos % (Auto) Baso % (Auto) Neut # (Auto) Lymph # (Auto) Porter # (Auto) Eos # (Auto) Baso # (Auto) Immature Gran # (Auto) Neutrophils % (Manual) Lymphocytes % (Manual) Monocytes % (Manual) Metamyelocytes % (Man) Neutrophils # (Manual) Total Absolute Neuts Lymphocytes # (Manual) Total Abs Lymphocytes Monocytes # (Manual) Metamyelocytes # (Man) Macrocytosis ESR PT INR APTT PTT Ratio Activ Coag Time Kaolin 219 H D-Dimer Sodium Potassium Chloride Carbon Dioxide Anion Gap BUN Creatinine Est Cr Clr Drug Dosing Est GFR ( Amer) Est GFR (Non-Af Amer) BUN/Creatinine Ratio Glucose POC Glucose Estimat Average Glucose Hemoglobin A1c Calcium Magnesium Ferritin Total Bilirubin AST ALT Alkaline Phosphatase Total Creatine Kinase CK-MB (CK-2) CK/CKMB % Calc Troponin I C-Reactive Protein NT-Pro-B Natriuret Pep Total Protein Albumin Globulin Albumin/Globulin Ratio Triglycerides Cholesterol LDL Cholesterol, Calc VLDL Cholesterol, Calc HDL Cholesterol Cholesterol/HDL Ratio Lipase Procalcitonin Urine Color Urine Appearance Urine pH Ur Specific [place] Urine Protein Urine Glucose (UA) Urine Ketones Urine Blood Urine Nitrite Urine Bilirubin Urine Urobilinogen Ur Leukocyte Esterase Urine WBC (Auto) Urine RBC (Auto) U Hyaline Cast (Auto) U Epithel Cells (Auto) Urine Bacteria (Auto) Nasal Screen MRSA (PCR) COVID-19 Eval Order SARS-CoV-2, RNA, NAAT POSITIVE A* Blood Type Cancelled Antibody Screen Cancelled 10/12/20 10/12/20 10/12/20 11:23 16:12 16:14 WBC RBC Hgb Hct MCV MCH MCHC RDW Std Deviation RDW Coeff of Miles Plt Count MPV Immature Gran % (Auto) Neut % (Auto) Lymph % (Auto) Porter % (Auto) Eos % (Auto) Baso % (Auto) Neut # (Auto) Lymph # (Auto) Porter # (Auto) Eos # (Auto) Baso # (Auto) Immature Gran # (Auto) Neutrophils % (Manual) Lymphocytes % (Manual) Monocytes % (Manual) Metamyelocytes % (Man) Neutrophils # (Manual) Total Absolute Neuts Lymphocytes # (Manual) Total Abs Lymphocytes Monocytes # (Manual) Metamyelocytes # (Man) Macrocytosis ESR PT INR APTT PTT Ratio Activ Coag Time Kaolin 213 H D-Dimer Sodium Potassium Chloride Carbon Dioxide Anion Gap BUN Creatinine Est Cr Clr Drug Dosing Est GFR ( Amer) Est GFR (Non-Af Amer) BUN/Creatinine Ratio Glucose POC Glucose 324 H* 313 H* Estimat Average Glucose Hemoglobin A1c Calcium Magnesium Ferritin Total Bilirubin AST ALT Alkaline Phosphatase Total Creatine Kinase CK-MB (CK-2) CK/CKMB % Calc Troponin I C-Reactive Protein NT-Pro-B Natriuret Pep Total Protein Albumin Globulin Albumin/Globulin Ratio Triglycerides Cholesterol LDL Cholesterol, Calc VLDL Cholesterol, Calc HDL Cholesterol Cholesterol/HDL Ratio Lipase Procalcitonin Urine Color Urine Appearance Urine pH Ur Specific [place] Urine Protein Urine Glucose (UA) Urine Ketones Urine Blood Urine Nitrite Urine Bilirubin Urine Urobilinogen Ur Leukocyte Esterase Urine WBC (Auto) Urine RBC (Auto) U Hyaline Cast (Auto) U Epithel Cells (Auto) Urine Bacteria (Auto) Nasal Screen MRSA (PCR) COVID-19 Eval Order SARS-CoV-2, RNA, NAAT Blood Type Antibody Screen 10/12/20 10/12/20 10/12/20 18:08 18:08 20:30 WBC RBC Hgb Hct MCV MCH MCHC RDW Std Deviation RDW Coeff of Miles Plt Count MPV Immature Gran % (Auto) Neut % (Auto) Lymph % (Auto) Porter % (Auto) Eos % (Auto) Baso % (Auto) Neut # (Auto) Lymph # (Auto) Porter # (Auto) Eos # (Auto) Baso # (Auto) Immature Gran # (Auto) Neutrophils % (Manual) Lymphocytes % (Manual) Monocytes % (Manual) Metamyelocytes % (Man) Neutrophils # (Manual) Total Absolute Neuts Lymphocytes # (Manual) Total Abs Lymphocytes Monocytes # (Manual) Metamyelocytes # (Man) Macrocytosis ESR PT INR APTT PTT Ratio Activ Coag Time Kaolin D-Dimer Sodium Potassium Chloride Carbon Dioxide Anion Gap BUN Creatinine Est Cr Clr Drug Dosing Est GFR ( Amer) Est GFR (Non-Af Amer) BUN/Creatinine Ratio Glucose POC Glucose 269 H Estimat Average Glucose Hemoglobin A1c Calcium Magnesium 2.0 Ferritin Total Bilirubin AST ALT Alkaline Phosphatase Total Creatine Kinase CK-MB (CK-2) CK/CKMB % Calc Troponin I 15.200 H* C-Reactive Protein NT-Pro-B Natriuret Pep Total Protein Albumin Globulin Albumin/Globulin Ratio Triglycerides Cholesterol LDL Cholesterol, Calc VLDL Cholesterol, Calc HDL Cholesterol Cholesterol/HDL Ratio Lipase Procalcitonin Urine Color Urine Appearance Urine pH Ur Specific [place] Urine Protein Urine Glucose (UA) Urine Ketones Urine Blood Urine Nitrite Urine Bilirubin Urine Urobilinogen Ur Leukocyte Esterase Urine WBC (Auto) Urine RBC (Auto) U Hyaline Cast (Auto) U Epithel Cells (Auto) Urine Bacteria (Auto) Nasal Screen MRSA (PCR) COVID-19 Eval Order SARS-CoV-2, RNA, NAAT Blood Type Antibody Screen 10/12/20 10/13/20 10/13/20 23:00 00:00 00:26 WBC RBC Hgb Hct MCV MCH MCHC RDW Std Deviation RDW Coeff of Miles Plt Count MPV Immature Gran % (Auto) Neut % (Auto) Lymph % (Auto) Porter % (Auto) Eos % (Auto) Baso % (Auto) Neut # (Auto) Lymph # (Auto) Porter # (Auto) Eos # (Auto) Baso # (Auto) Immature Gran # (Auto) Neutrophils % (Manual) Lymphocytes % (Manual) Monocytes % (Manual) Metamyelocytes % (Man) Neutrophils # (Manual) Total Absolute Neuts Lymphocytes # (Manual) Total Abs Lymphocytes Monocytes # (Manual) Metamyelocytes # (Man) Macrocytosis ESR PT INR APTT PTT Ratio Activ Coag Time Kaolin D-Dimer Sodium Potassium Chloride Carbon Dioxide Anion Gap BUN Creatinine Est Cr Clr Drug Dosing Est GFR ( Amer) Est GFR (Non-Af Amer) BUN/Creatinine Ratio Glucose POC Glucose 146 H Estimat Average Glucose Hemoglobin A1c Calcium Magnesium Ferritin Total Bilirubin AST ALT Alkaline Phosphatase Total Creatine Kinase CK-MB (CK-2) CK/CKMB % Calc Troponin I 20.600 H* C-Reactive Protein NT-Pro-B Natriuret Pep Total Protein Albumin Globulin Albumin/Globulin Ratio Triglycerides Cholesterol LDL Cholesterol, Calc VLDL Cholesterol, Calc HDL Cholesterol Cholesterol/HDL Ratio Lipase Procalcitonin Urine Color Urine Appearance Urine pH Ur Specific [place] Urine Protein Urine Glucose (UA) Urine Ketones Urine Blood Urine Nitrite Urine Bilirubin Urine Urobilinogen Ur Leukocyte Esterase Urine WBC (Auto) Urine RBC (Auto) U Hyaline Cast (Auto) U Epithel Cells (Auto) Urine Bacteria (Auto) Nasal Screen MRSA (PCR) Negative COVID-19 Eval Order SARS-CoV-2, RNA, NAAT Blood Type Antibody Screen 10/13/20 10/13/20 10/13/20 00:55 03:47 05:50 WBC 11.85 H RBC 2.20 L Hgb 8.4 L Hct 25.1 L MCV 114.1 H MCH 38.2 H MCHC 33.5 RDW Std Deviation 55.1 H RDW Coeff of Miles 13.6 Plt Count 420 H MPV 9.1 Immature Gran % (Auto) Neut % (Auto) Lymph % (Auto) Porter % (Auto) Eos % (Auto) Baso % (Auto) Neut # (Auto) Lymph # (Auto) Porter # (Auto) Eos # (Auto) Baso # (Auto) Immature Gran # (Auto) Neutrophils % (Manual) 48.6 Lymphocytes % (Manual) 9.6 Monocytes % (Manual) 40.9 Metamyelocytes % (Man) 0.9 Neutrophils # (Manual) 5.76 Total Absolute Neuts 5.76 Lymphocytes # (Manual) 1.14 L Total Abs Lymphocytes 1.14 L Monocytes # (Manual) 4.85 H Metamyelocytes # (Man) 0.11 H Macrocytosis Present ESR PT INR APTT PTT Ratio Activ Coag Time Kaolin D-Dimer Sodium Potassium Chloride Carbon Dioxide Anion Gap BUN Creatinine Est Cr Clr Drug Dosing Est GFR ( Amer) Est GFR (Non-Af Amer) BUN/Creatinine Ratio Glucose POC Glucose 97 Estimat Average Glucose Hemoglobin A1c Calcium Magnesium Ferritin Total Bilirubin AST ALT Alkaline Phosphatase Total Creatine Kinase CK-MB (CK-2) CK/CKMB % Calc Troponin I C-Reactive Protein NT-Pro-B Natriuret Pep Total Protein Albumin Globulin Albumin/Globulin Ratio Triglycerides Cholesterol LDL Cholesterol, Calc VLDL Cholesterol, Calc HDL Cholesterol Cholesterol/HDL Ratio Lipase Procalcitonin Urine Color Dark Yellow Urine Appearance Cloudy A Urine pH 5.0 Ur Specific [place] 1.027 Urine Protein 2+ H Urine Glucose (UA) 2+ H Urine Ketones Trace H Urine Blood 3+ H Urine Nitrite Negative Urine Bilirubin Negative Urine Urobilinogen Negative Ur Leukocyte Esterase Trace H Urine WBC (Auto) 1-5 Urine RBC (Auto) >30 H U Hyaline Cast (Auto) 1-5 U Epithel Cells (Auto) 5-10 H Urine Bacteria (Auto) Negative Nasal Screen MRSA (PCR) COVID-19 Eval Order SARS-CoV-2, RNA, NAAT Blood Type Antibody Screen 10/13/20 10/13/20 10/13/20 05:50 05:50 05:50 WBC RBC Hgb Hct MCV MCH MCHC RDW Std Deviation RDW Coeff of Miles Plt Count MPV Immature Gran % (Auto) Neut % (Auto) Lymph % (Auto) Porter % (Auto) Eos % (Auto) Baso % (Auto) Neut # (Auto) Lymph # (Auto) Porter # (Auto) Eos # (Auto) Baso # (Auto) Immature Gran # (Auto) Neutrophils % (Manual) Lymphocytes % (Manual) Monocytes % (Manual) Metamyelocytes % (Man) Neutrophils # (Manual) Total Absolute Neuts Lymphocytes # (Manual) Total Abs Lymphocytes Monocytes # (Manual) Metamyelocytes # (Man) Macrocytosis ESR PT INR APTT PTT Ratio Activ Coag Time Kaolin D-Dimer Sodium 138 Potassium 3.8 Chloride 106 Carbon Dioxide 24 Anion Gap 8.0 BUN 12 Creatinine 0.67 Est Cr Clr Drug Dosing 88.6 Est GFR ( Amer) 99.4 Est GFR (Non-Af Amer) 85.8 BUN/Creatinine Ratio 17.3 Glucose 99 POC Glucose Estimat Average Glucose 183 Hemoglobin A1c 8.0 H Calcium 9.2 Magnesium Ferritin Total Bilirubin AST ALT Alkaline Phosphatase Total Creatine Kinase CK-MB (CK-2) CK/CKMB % Calc Troponin I C-Reactive Protein NT-Pro-B Natriuret Pep Total Protein Albumin Globulin Albumin/Globulin Ratio Triglycerides 100 Cholesterol 117 LDL Cholesterol, Calc 47 VLDL Cholesterol, Calc 20 HDL Cholesterol 50 Cholesterol/HDL Ratio 2 Lipase Procalcitonin 0.13 Urine Color Urine Appearance Urine pH Ur Specific [place] Urine Protein Urine Glucose (UA) Urine Ketones Urine Blood Urine Nitrite Urine Bilirubin Urine Urobilinogen Ur Leukocyte Esterase Urine WBC (Auto) Urine RBC (Auto) U Hyaline Cast (Auto) U Epithel Cells (Auto) Urine Bacteria (Auto) Nasal Screen MRSA (PCR) COVID-19 Eval Order SARS-CoV-2, RNA, NAAT Blood Type Antibody Screen 10/13/20 07:56 WBC RBC Hgb Hct MCV MCH MCHC RDW Std Deviation RDW Coeff of Miles Plt Count MPV Immature Gran % (Auto) Neut % (Auto) Lymph % (Auto) Porter % (Auto) Eos % (Auto) Baso % (Auto) Neut # (Auto) Lymph # (Auto) Porter # (Auto) Eos # (Auto) Baso # (Auto) Immature Gran # (Auto) Neutrophils % (Manual) Lymphocytes % (Manual) Monocytes % (Manual) Metamyelocytes % (Man) Neutrophils # (Manual) Total Absolute Neuts Lymphocytes # (Manual) Total Abs Lymphocytes Monocytes # (Manual) Metamyelocytes # (Man) Macrocytosis ESR PT INR APTT PTT Ratio Activ Coag Time Kaolin D-Dimer Sodium Potassium Chloride Carbon Dioxide Anion Gap BUN Creatinine Est Cr Clr Drug Dosing Est GFR ( Amer) Est GFR (Non-Af Amer) BUN/Creatinine Ratio Glucose POC Glucose 138 H Estimat Average Glucose Hemoglobin A1c Calcium Magnesium Ferritin Total Bilirubin AST ALT Alkaline Phosphatase Total Creatine Kinase CK-MB (CK-2) CK/CKMB % Calc Troponin I C-Reactive Protein NT-Pro-B Natriuret Pep Total Protein Albumin Globulin Albumin/Globulin Ratio Triglycerides Cholesterol LDL Cholesterol, Calc VLDL Cholesterol, Calc HDL Cholesterol Cholesterol/HDL Ratio Lipase Procalcitonin Urine Color Urine Appearance Urine pH Ur Specific [place] Urine Protein Urine Glucose (UA) Urine Ketones Urine Blood Urine Nitrite Urine Bilirubin Urine Urobilinogen Ur Leukocyte Esterase Urine WBC (Auto) Urine RBC (Auto) U Hyaline Cast (Auto) U Epithel Cells (Auto) Urine Bacteria (Auto) Nasal Screen MRSA (PCR) COVID-19 Eval Order SARS-CoV-2, RNA, NAAT Blood Type Antibody Screen Medications Administered Current Inpatient Medications Acetaminophen (Acetaminophen 325 Mg Tab) 650 mg PO Q4H PRN PRN Reason: MILD Pain (Scale 1,2,3) Stop: 11/11/20 11:40 Amoxicillin (Amoxicillin 500 Mg Cap) 500 mg PO TID [facility] Stop: 10/22/20 20:59 Last Admin: 10/13/20 07:48 Dose: 500 mg Documented by: Aspirin (Aspirin 81 Mg Ectab) 81 mg [id number] Stop: 11/12/20 08:59 Last Admin: 10/13/20 07:49 Dose: 81 mg Documented by: Atorvastatin Calcium (Atorvastatin 40 Mg Tab) 40 mg PO QAM [facility] Stop: 11/12/20 08:59 Last Admin: 10/13/20 07:50 Dose: 40 mg Documented by: Clopidogrel Bisulfate (Clopidogrel Bisulfate 75 Mg Tab) 75 mg PO [facility] Stop: 11/12/20 08:59 Last Admin: 10/13/20 07:48 Dose: 75 mg Documented by: Dextrose (Dextrose 50% 50 Ml Syringe) 25 - 50 ml IV UD PRN; Protocol PRN Reason: Hypoglycemia Protocol Stop: 11/11/20 16:29 Enoxaparin Sodium (Enoxaparin Inj 40 Mg/0.4 Ml Syr) 40 mg SQ [facility] Stop: 11/12/20 08:59 Last Admin: 10/13/20 07:51 Dose: 40 mg Documented by: Finasteride (Finasteride 5 Mg Tab) 5 mg PO DAILY [facility] Stop: 11/12/20 08:59 Last Admin: 10/13/20 07:51 Dose: 5 mg Documented by: Glucagon (Glucagon For Inj 1 Mg Vial) 1 mg IM UD PRN; Protocol PRN Reason: Hypoglycemia Protocol Stop: 11/11/20 16:29 Glucose (Glucose 40% Gel 15 Gm Tube) 15 - 30 gm PO UD PRN; Protocol PRN Reason: Hypoglycemia Protocol Stop: 11/11/20 16:29 Glucose (Glucose 10 Tabs/Tube) 4 - 8 tabs PO UD PRN; Protocol PRN Reason: Hypoglycemia Protocol Stop: 11/11/20 16:29 Insulin Aspart (Insulin Aspart 100 Units/Ml 3 Ml Pen) 0 units SC Q4 [facility]; Protocol Stop: 11/11/20 15:59 Last Admin: 10/13/20 08:30 Dose: 6 units Documented by: Insulin Glargine (Insulin Glargine Solostar 100 Units/Ml 3 Ml Pen) 11 units SC Q12 [facility] Stop: 11/12/20 08:59 Last Admin: 10/13/20 08:28 Dose: 11 units Documented by: Lisinopril (Lisinopril 5 Mg Tab) 5 mg PO QAM [facility] Stop: 11/12/20 08:59 Last Admin: 10/13/20 07:51 Dose: 5 mg Documented by: Melatonin (Melatonin 3 Mg Tab) 6 mg PO HSZ PRN PRN Reason: Sleep Stop: 11/11/20 16:15 Metoprolol Tartrate (Metoprolol Tartrate 50 Mg Tab) 50 mg PO BID [facility] Stop: 11/11/20 20:59 Last Admin: 10/13/20 07:48 Dose: 50 mg Documented by: Miscellaneous (Carbohydrates For Hypoglycemia ) 15 - 30 gm PO UD PRN PRN Reason: Hypoglycemia Treatment Stop: 11/11/20 16:29 Miscellaneous Information (Pharmacy Glycemic Mgmt Consult) 1 ea N/A UD [facility] Stop: 11/11/20 14:36 Morphine Sulfate (Morphine Sulfate 2 Mg/Ml Carp) 2 mg IV Q2H PRN PRN Reason: chest pain Stop: 10/26/20 13:36 Multivitamins (Multivitamin Tab) 1 tab PO DAILY [facility] Stop: 11/12/20 08:59 Last Admin: 10/13/20 07:49 Dose: 1 tab Documented by: Ondansetron HCl (Ondansetron Inj 2 Mg/Ml 2 Ml Vial) 4 mg IV Q6H PRN PRN Reason: Nausea And Vomiting Stop: 11/11/20 11:40 PG Care Time/CCT Total # of Minutes Spent Total Time Spent with Patient: Total time spent is greater than 50% in coordination of care (as documented) at patient's floor/unit and/or counseling patient: Coding Level of Care Code 22860 Subseq Hosp Care Lvl 3 Diagnoses STEMI (ST elevation myocardial infarction) I21.3 COVID-19 U07.1 Hematuria R31.9 Other inflammatory diseases of prostate N41.8 Hypertension I10 Type 2 diabetes mellitus E11.9 Ileus K56.7 Urinary retention R33.9 Macrocytic anemia D53.9 DVT prophylaxis Z29.9
[2020-10-13] MEDS ORDERED: METOPROLOL TARTRATE 25 MG TAB PO STA (09:41)
[2020-10-13] MEDS: dexAMETHasone 6 MG in SYRINGE 0 ML IV SCH (11:22)
[2020-10-13] MEDS: INSULIN HUMAN NPH SC SCH (11:28)
--- NOTE | 2020-10-13 11:35 | Pharmacy Report ---
Pharmacy Glycemic Short Note 2 - Date of Service October 13, 2020 - Glycemic Short BSG Results (Last 24 hours): 10/12/20 10/12/20 10/12/20 16:12 16:14 20:30 Glucose POC Glucose 324 H* 313 H* 269 H 10/13/20 10/13/20 10/13/20 00:26 03:47 05:50 Glucose 99 POC Glucose 146 H 97 10/13/20 07:56 Glucose POC Glucose 138 H OUTPATIENT ANTIDIABETIC REGIMEN: * N/A * A1c = 8.0 10/13/20 ASSESSMENT: 10/13 * BSGs have fallen to goal range this AM with current insulin regimen * Over the last 24 hrs he has received 45 units SQ insulin * This AM patient will be starting IV dexamethasone 6mg daily. Hospitalist has added NPH 0.4unit/kg w/ each dose of dexamethasone, which should help counter the acute hyperglycemic effects seen with this therapy * Patient did eat well this AM and did eat a dinner yesterday as well. 10/12 * Type 2 diabetic admitted to ICU following STEMI, now s/p DAISY x 2 to RCA. Patient was also found to be COVID19 + * Patient did not appear to be taking any medications for DM prior to admission. We also do not have an A1c to determine if current hyperglycemia is stress induced for patient's baseline. Will check A1c w/ AM labs * Will initiate SQ basal/bolus regimen based upon patient's weight. Will provide a total daily insulin dose of ~0.5units/kg/day, however rather than giving large doses of basal insulin, will utilize a Novolog dose that provides some of this "basal" requirement Q 4 hrs (see Novolog scale) * Steroids have not yet been ordered for this patient. If steroids are initiated due to O2 sats, NPH insulin will likely be added (~0.3-0.4units/kg per dose of dexamethasone 6mg IV) PLAN FOR INPATIENT GLYCEMIC CONTROL: * Check A1c w/ next lab draw * Basal insulin * Lantus 11 units SQ BID - HOLD if BSG less than 110 * NPH 36 units (0.4units/kg) w/ each dose of dexamethasone 6mg IV * Bolus insulin PLAN FOR DISCHARGE: * Given patient's age and comorbidities A1c of 8% would be near goal. One might consider a low hypoglycemia risk PO agent on discharge such as metformin if no contraindications present.
--- NOTE | 2020-10-13 12:04 | Critical Care Consultation ---
Date of Consultation October 13, 2020 Assessment & Plan (1) STEMI (ST elevation myocardial infarction): Patient is an 89-year-old male who underwent PTCI with DAISY x2 to the RCA. Patient did have transient episode of A. fib. Coincidently, the patient was found to have tested positive for COVID-19 and preprocedure screening. Currently, the patient is requiring 2 L supplemental oxygen. He is currently receiving Decadron per current COVID-19 treatment guidelines. From a cardiovascular standpoint, the patient is doing well. He will continue to receive dexamethasone per current COVID-19 treatment guidelines. Otherwise, patient will remain on ASCVD Rx and DAPT per cardiology recommendations. Stable for downgrade from ICU standpoint. History of Present Illness Attending Physician: Jack Abrams DO History of Present Illness Patient is an 89-year-old male with a significant past medical history of diabetes and hypertension. Patient presented to the emergency department with complaints of ongoing chest pain. Patient was found to have acute STEMI requiring emergent PTCI. Patient was found to be COVID-19 positive in preprocedure screening. Patient received 2 drug-eluting stents to the proximal to distal RCA. Patient with transient episode of A. fib requiring metoprolol administration. Otherwise, patient has remained hemodynamically stable. Allergies Allergy/AdvReac Type Severity Reaction Status Date / Time Sulfa (Sulfonamide Allergy Unknown Unknown Verified 10/12/20 13:08 Antibiotics) Home Medications Medication Instructions Recorded Confirmed Type acetaminophen 650 mg PO Q6H PRN 10/12/20 10/12/20 History amoxicillin 500 mg PO TID 10/12/20 10/12/20 History benzonatate [Tessalon Perles] 100 mg PO Q8H PRN 10/12/20 10/12/20 History bisacodyl [Dulcolax (bisacodyl)] 10 mg OR DAILY PRN 10/12/20 10/12/20 History finasteride [Proscar] 5 mg PO DAILY 10/12/20 10/12/20 History melatonin 5 mg PO HS PRN 10/12/20 10/12/20 History metoprolol tartrate 50 mg PO BID 10/12/20 10/12/20 History multivitamin 1 tab PO DAILY 10/12/20 10/12/20 History omega-3 fatty acids [[place] 3 Fish 2,000 mg PO BID 10/12/20 10/12/20 History Oil] Patient History Medical History Acquired hemolytic anemia Epigastric pain Heartburn Hematuria Hypertension Ileus Other inflammatory diseases of prostate Type 2 diabetes mellitus Urinary retention Surgical History History of urologic surgery Social History Smoking Status: Never smoker Hx Alcohol Use: No Hx Substance Use: No Preferred Language: Mosotho Communication Ability: Effective Beliefs That Will Affect Care: None Current Living Situation: Alone Other Information That Helps Us Care for You: No Feels Safe at Home: Yes Assistive Devices: None Review of Systems Review of Systems: All systems reviewed & are unremarkable except as noted in HPI & below Physical Exam Physical Exam: General: Alert. nontoxic. Skin: Warm, dry, Head: Atraumatic Ears, nose, mouth and throat: airway patent Cardiovascular: Normal peripheral perfusion Respiratory: no respiratory distress Gastrointestinal: Non distended Musculoskeletal: No deformity Results & Data Results & Data ([facility]) Vital Signs (Past 12 Hours) Vital Signs Temp Pulse Resp BP Pulse Ox 10/13/20 07:57 36.9 C 10/13/20 07:42 102 H 28 H 130/83 98 10/13/20 07:00 98 H 26 H 97 10/13/20 06:00 108 H 24 157/83 H 95 10/13/20 05:00 96 H 24 133/79 97 10/13/20 04:00 36.9 C 100 H 24 133/74 97 10/13/20 03:00 99 H 28 H 127/77 97 10/13/20 02:00 90 25 H 143/67 H 97 10/13/20 01:00 86 24 144/77 H 95 Coding Level of Care Code 85881 Inpt Consult Level 4 Diagnoses STEMI (ST elevation myocardial infarction) I21.3 Involved coronary artery: unspecified coronary artery (1) STEMI (ST elevation myocardial infarction) Involved coronary artery: unspecified coronary artery Qualified Code(s): I21.3 - ST elevation (STEMI) myocardial infarction of unspecified site
[2020-10-13] MEDS ORDERED: HEPARIN SOD 5,000 UNIT/0.5 ML VIAL SQ SCH (14:00)
[2020-10-13] MEDS ORDERED: METOPROLOL TARTRATE 1 MG/ML VIAL IV STA (18:43)
[2020-10-13] MEDS ORDERED: ENOXAPARIN 1 MG/KG SQ SCH (18:45)
[2020-10-13] MEDS ORDERED: METOPROLOL TARTRATE 1 MG/ML VIAL IV ONE (18:46)
[2020-10-13] MEDS: ENOXAPARIN 100 MG/1ML SYR SQ SCH (19:26)
[2020-10-13] MEDS: METOPROLOL TARTRATE 25 MG TAB PO SCH (19:28)
[2020-10-14] MEDS: INSULIN ASPART 100 UNITS/ML 3 ML PEN SC SCH ×6 (00:16→21:32)
[2020-10-14] MEDS: MELATONIN 3 MG TAB PO PRN ×2 (02:04→21:35)
[2020-10-14 08:01] LABS: Hemoglobin 7.3 g/dL (14.0-18.0); Mean Corpuscular Hemoglobin 37.4 pg (25-34); Mean Corpuscular Hgb Conc 33.2 g/dL (32-36); Mean Corpuscular Volume 112.8 fL (80-100); Mean Platelet Volume 9.1 fL (7.4-10.4); Platelet Count 370 K/uL (130-400); RDW Coefficient of Variation 13.8 % (11.5-14.5); RDW Standard Deviation 55.8 fL (36.4-46.3); Red Blood Count 1.95 M/uL (4.7-6.1); White Blood Count 8.56 K/uL (4.8-10.8)
[2020-10-14] MEDS: ENOXAPARIN 100 MG/1ML SYR SQ SCH ×3 (08:06→21:51)
[2020-10-14] MEDS: AMOXICILLIN 500 MG CAP PO SCH ×3 (08:07→21:34)
[2020-10-14] MEDS: INSULIN GLARGINE SOLOSTAR 100 UNITS/ML 3 ML PEN SC SCH ×2 (08:08→21:35)
[2020-10-14] MEDS: ASPIRIN 81 MG ECTAB PO SCH (08:08)
[2020-10-14] MEDS: dexAMETHasone 6 MG in SYRINGE 0 ML IV SCH (08:09)
[2020-10-14] MEDS: ATORVASTATIN 40 MG TAB PO SCH (08:10)
[2020-10-14] MEDS: INSULIN HUMAN NPH SC SCH (08:11)
[2020-10-14] MEDS: METOPROLOL TARTRATE 25 MG TAB PO SCH ×2 (08:11→21:34)
[2020-10-14] MEDS: MULTIVITAMIN TAB PO SCH (08:11)
[2020-10-14] MEDS: FINASTERIDE 5 MG TAB PO SCH (08:12)
[2020-10-14] MEDS: CLOPIDOGREL BISULFATE 75 MG TAB PO SCH (08:12)
[2020-10-14] MEDS: lisinopril 5 MG TAB PO SCH (08:13)
[2020-10-14 08:19] LABS: BUN Creatinine Ratio 26.3 (10-20); Calcium 9.1 mg/dl (8.5-10.1); Creatinine Clr Calc Pharmacy 78.1 ml/min; Est GFR (African American) 94.4; Est GFR (Non-African American) 81.5; Potassium 3.9 mmol/L (3.5-5.1)
[2020-10-14 08:26] LABS: Basophils # (auto) 0.01 K/uL (0-0.2); Basophils % (auto) 0.1 %; Immature Granulocytes # (auto) 0.06 K/uL (0.00-0.02); Immature Granulocytes % (auto) 0.7 %; Lymphocytes # (auto) 1.64 K/uL (1.2-3.4); Lymphocytes % (auto) 19.2 %; Macrocytosis Present; Monocytes # (auto) 3.14 K/uL (0.11-0.59); Monocytes % (auto) 36.7 %; Neutrophils # (auto) 3.71 K/uL (1.4-6.5); Neutrophils % (auto) 43.3 %
[2020-10-14 08:39] LABS: Troponin I 10.3 ng/ml (0-0.045)
[2020-10-14] MEDS ORDERED: ENOXAPARIN INJ 40 MG/0.4 ML SYR SQ SCH (09:00)
[2020-10-14] MEDS ORDERED: SODIUM CHLORIDE 0.9% 250 ML IV PRN (10:40)
[2020-10-14] MEDS ORDERED: FUROSEMIDE 20 MG in SYRINGE 0 ML IV ONE (12:00)
--- NOTE | 2020-10-14 14:26 | Electrocardiogram Report ---
Test Reason : Blood Pressure : / mmHG Vent. Rate : 113 BPM Atrial Rate : 127 BPM P-R Int : 000 ms QRS Dur : 086 ms QT Int : 292 ms P-R-T Axes : 000 -38 066 degrees QTc Int : 400 ms Poor data quality, interpretation may be adversely affected Atrial fibrillation with rapid ventricular response Left axis deviation Minimal voltage criteria for LVH, may be normal variant Subacute Inferior infarct (cited on or before 12-OCT-2020) Abnormal ECG When compared with ECG of 12-OCT-2020 13:57, Atrial fibrillation has replaced Ectopic atrial rhythm T wave inversion less evident in Inferior leads Confirmed by Zackery Cherry ([id number]) on 10/14/2020 2:26:14 PM Referred By: [facility] Confirmed By:Zackery Cherry
--- NOTE | 2020-10-14 16:14 | Hospitalist Progress Note ---
Date of Service October 14, 2020 Assessment & Plan (1) Atrial fibrillation: new onset, occurred last night, rates were well controlled continue Lopressor 75mg BID continue Lovenox for full anticoagulation monitor Hb, if stable, change to DOAC tomorrow with Plavix discussed with Dr. 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 Symptoms suspected 2-3 days prior to this but unclear onset. CXR with infiltrates, subtle on room air today stop dexamethasone (4) Hematuria: Avoid Wrgiht catheter if possible to avoid further bleeding of his prostate. Continue antibiotics (amoxicillin) for "complicated UTI" (5) Other inflammatory diseases of prostate: Unclear specific diagnosis from care home notes. HIM request for [facility] discharge summary. (6) Hypertension: Continue lisinopril increase metoprolol to 75mg BID for better HR control, resting HR is 80-100 this morning (7) Type 2 diabetes mellitus: HbA1c 8% Hold metformin Basal bolus regimen ordered will give NPH 36 units with dexamethasone this morning monitor for hyperglycemia (8) Ileus: Notable history of this. Monitor BMs closely. (9) Urinary retention: Recent history of this secondary to hematuria with clots. Bladder scan q shift. Call provider if PVR > 400ml. (10) Macrocytic anemia: Hb down to 7.3 today given his recent STEMI will transfuse two units PRBC give Lasix 20mg IV in between units repeat Hb in the morning (11) DVT prophylaxis: heparin SC Admission and Anticipated Discharge Date Admission Date: October 12, 2020 Subjective patient doing well today, no chest pain, breathing comfortably reviewed labs, Hb down to 7.3, discussed benefits and risks of blood transfusion, he agreed no signs of blood loss at this time still in afib on the monitor, HR well controlled on lopressor 75mg BID discussed with Dr. Braswell and Dr. Honeycutt, will change to PCU status is off oxygen today, stop dexamethasone he is eating well Review of Systems Review of Systems: All systems reviewed & are unremarkable except as noted in Subjective Physical Exam Constitutional: WD/WN, vitals as above + frail appearing Neck: trachea midline, no thyromegaly Respiratory: normal respiratory effort, lungs clear to auscultation Cardiovascular: Rate/Rhythm: regular rate and + irregularly irregular Heart Sounds: normal S1 and normal S2; no murmur Vessels: no JVD Extremities: normal capillary refill; no edema Gastrointestinal (Abdomen): normal bowel sounds, soft, nontender, no hepatosplenomegaly Musculoskeletal: no cyanosis or clubbing, extremities motor strength 5/5 Skin: no rashes, warm and dry Neurologic: patellar DTR's 2+ bilat, sensation intact and PERRL, EOMI, accommodation nl, no face palsy, no dysarthria Psychiatric: A+Ox3, euthymic affect Lymphatic: no cervical or axillary lymphadenopathy Results & Data Results & Data ([facility]) Vital Signs (Past 12 Hours) Vital Signs Temp Pulse Pulse Resp BP BP Pulse Ox 10/14/20 15:30 36.8 C 79 18 111/69 96 10/14/20 14:30 36.7 C 79 20 106/62 97 10/14/20 14:00 36.7 C 89 20 106/64 97 10/14/20 13:32 84 108/54 L 96 10/14/20 13:30 36.6 C 90 20 108/54 L 96 10/14/20 13:17 83 97/62 L 96 10/14/20 13:15 36.7 C 88 20 97/62 L 97 10/14/20 13:02 82 110/59 L 97 10/14/20 13:00 36.6 C 85 18 110/59 L 96 10/14/20 12:41 86 114/60 95 10/14/20 12:00 89 96 10/14/20 11:41 80 103/60 95 10/14/20 11:40 36.7 C 75 20 103/60 94 10/14/20 11:00 81 96 10/14/20 10:00 77 97 10/14/20 09:00 106 H 97 10/14/20 08:00 87 97 10/14/20 07:56 102 H 119/65 93 10/14/20 07:54 36.5 C 103 H 98 H 20 87/55 L 119/65 92 10/14/20 07:23 81 110/69 96 10/14/20 07:00 86 96 10/14/20 06:23 81 114/62 99 10/14/20 06:00 80 16 97/62 L 97 10/14/20 05:00 85 23 111/58 L 98 Laboratory Results Laboratory Results - last 24 hr 10/13/20 10/13/20 10/14/20 16:23 20:28 00:02 WBC RBC Hgb Hct MCV MCH MCHC RDW Std Deviation RDW Coeff of Miles Plt Count MPV Immature Gran % (Auto) Neut % (Auto) Lymph % (Auto) [place] % (Auto) Eos % (Auto) Baso % (Auto) Neut # (Auto) Lymph # (Auto) [place] # (Auto) Eos # (Auto) Baso # (Auto) Immature Gran # (Auto) Macrocytosis Sodium Potassium Chloride Carbon Dioxide Anion Gap BUN Creatinine Est Cr Clr Drug Dosing Est GFR ( Amer) Est GFR (Non-Af Amer) BUN/Creatinine Ratio Glucose POC Glucose 153 H 251 H 143 H Calcium Troponin I Blood Type Blood Type Recheck Antibody Screen Crossmatch 10/14/20 10/14/20 10/14/20 04:30 07:16 07:16 WBC 8.56 RBC 1.95 L Hgb 7.3 L Hct 22.0 L MCV 112.8 H MCH 37.4 H MCHC 33.2 RDW Std Deviation 55.8 H RDW Coeff of Miles 13.8 Plt Count 370 MPV 9.1 Immature Gran % (Auto) 0.7 Neut % (Auto) 43.3 Lymph % (Auto) 19.2 [place] % (Auto) 36.7 Eos % (Auto) 0.0 Baso % (Auto) 0.1 Neut # (Auto) 3.71 Lymph # (Auto) 1.64 [place] # (Auto) 3.14 H Eos # (Auto) 0.00 Baso # (Auto) 0.01 Immature Gran # (Auto) 0.06 H Macrocytosis Present Sodium 135 L Potassium 3.9 Chloride 107 Carbon Dioxide 23 Anion Gap 6.0 BUN 20 H D Creatinine 0.76 Est Cr Clr Drug Dosing 78.1 Est GFR ( Amer) 94.4 Est GFR (Non-Af Amer) 81.5 BUN/Creatinine Ratio 26.3 H Glucose 90 POC Glucose 111 H Calcium 9.1 Troponin I 10.300 H* Blood Type Blood Type Recheck Antibody Screen Crossmatch 10/14/20 10/14/20 10/14/20 07:16 07:42 10:57 WBC RBC Hgb Hct MCV MCH MCHC RDW Std Deviation RDW Coeff of Miles Plt Count MPV Immature Gran % (Auto) Neut % (Auto) Lymph % (Auto) [place] % (Auto) Eos % (Auto) Baso % (Auto) Neut # (Auto) Lymph # (Auto) [place] # (Auto) Eos # (Auto) Baso # (Auto) Immature Gran # (Auto) Macrocytosis Sodium Potassium Chloride Carbon Dioxide Anion Gap BUN Creatinine Est Cr Clr Drug Dosing Est GFR ( Amer) Est GFR (Non-Af Amer) BUN/Creatinine Ratio Glucose POC Glucose 107 H Calcium Troponin I Blood Type O Positive Blood Type Recheck O Positive Antibody Screen NEGATIVE Crossmatch See Detail 10/14/20 11:39 WBC RBC Hgb Hct MCV MCH MCHC RDW Std Deviation RDW Coeff of Miles Plt Count MPV Immature Gran % (Auto) Neut % (Auto) Lymph % (Auto) [place] % (Auto) Eos % (Auto) Baso % (Auto) Neut # (Auto) Lymph # (Auto) [place] # (Auto) Eos # (Auto) Baso # (Auto) Immature Gran # (Auto) Macrocytosis Sodium Potassium Chloride Carbon Dioxide Anion Gap BUN Creatinine Est Cr Clr Drug Dosing Est GFR ( Amer) Est GFR (Non-Af Amer) BUN/Creatinine Ratio Glucose POC Glucose 156 H Calcium Troponin I Blood Type Blood Type Recheck Antibody Screen Crossmatch Medications Administered Current Inpatient Medications Acetaminophen (Acetaminophen 325 Mg Tab) 650 mg PO Q4H PRN PRN Reason: MILD Pain (Scale 1,2,3) Stop: 11/11/20 11:40 Amoxicillin (Amoxicillin 500 Mg Cap) 500 mg PO TID [facility] Stop: 10/22/20 20:59 Last Admin: 10/14/20 12:32 Dose: 500 mg Documented by: Aspirin (Aspirin 81 Mg Ectab) 81 mg PO QAM [facility] Stop: 11/12/20 08:59 Last Admin: 10/14/20 08:08 Dose: 81 mg Documented by: Atorvastatin Calcium (Atorvastatin 40 Mg Tab) 40 mg PO QAM [facility] Stop: 11/12/20 08:59 Last Admin: 10/14/20 08:10 Dose: 40 mg Documented by: Clopidogrel Bisulfate (Clopidogrel Bisulfate 75 Mg Tab) 75 mg PO QAM [facility] Stop: 11/12/20 08:59 Last Admin: 10/14/20 08:12 Dose: 75 mg Documented by: Dextrose (Dextrose 50% 50 Ml Syringe) 25 - 50 ml IV UD PRN; Protocol PRN Reason: Hypoglycemia Protocol Stop: 11/11/20 16:29 Enoxaparin Sodium (Enoxaparin 100 Mg/1ml Syr) 90 mg SQ Q12H [facility] Stop: 11/12/20 18:59 Last Admin: 10/14/20 08:06 Dose: 90 mg Documented by: Finasteride (Finasteride 5 Mg Tab) 5 mg PO DAILY [facility] Stop: 11/12/20 08:59 Last Admin: 10/14/20 08:12 Dose: 5 mg Documented by: Glucagon (Glucagon For Inj 1 Mg Vial) 1 mg IM UD PRN; Protocol PRN Reason: Hypoglycemia Protocol Stop: 11/11/20 16:29 Glucose (Glucose 40% Gel 15 Gm Tube) 15 - 30 gm PO UD PRN; Protocol PRN Reason: Hypoglycemia Protocol Stop: 11/11/20 16:29 Glucose (Glucose 10 Tabs/Tube) 4 - 8 tabs PO UD PRN; Protocol PRN Reason: Hypoglycemia Protocol Stop: 11/11/20 16:29 Dexamethasone 6 mg/ Syringe 1.5 mls @ 1 mls/min IV QAM [facility] Stop: 11/12/20 09:44 Last Admin: 10/14/20 08:09 Dose: 1 mls/min Documented by: Sodium Chloride (Nss) 250 mls @ 15 mls/hr IV .[id number] PRN PRN Reason: For Transfusion Stop: 10/14/20 20:40 Insulin Aspart (Insulin Aspart 100 Units/Ml 3 Ml Pen) 0 units SC Q4 [facility]; Protocol Stop: 11/11/20 15:59 Last Admin: 10/14/20 12:57 Dose: 8 units Documented by: Insulin Glargine (Insulin Glargine Solostar 100 Units/Ml 3 Ml Pen) 11 units SC Q12 [facility] Stop: 11/12/20 08:59 Last Admin: 10/14/20 08:08 Dose: 11 units Documented by: Insulin Human NPH (Insulin Human Nph) [facility] Stop: 11/12/20 09:44 Last Admin: 10/14/20 08:11 Dose: 36 units Documented by: Lisinopril (Lisinopril 5 Mg Tab) 5 mg PO QAM [facility] Stop: 11/12/20 08:59 Last Admin: 10/14/20 08:13 Dose: 5 mg Documented by: Melatonin (Melatonin 3 Mg Tab) 6 mg PO HSZ PRN PRN Reason: Sleep Stop: 11/11/20 16:15 Last Admin: 10/14/20 02:04 Dose: 6 mg Documented by: Metoprolol Tartrate (Metoprolol Tartrate 25 Mg Tab) 75 mg PO BID [facility] Stop: 11/12/20 20:59 Last Admin: 10/14/20 08:11 Dose: 75 mg Documented by: Miscellaneous (Carbohydrates For Hypoglycemia ) 15 - 30 gm PO UD PRN PRN Reason: Hypoglycemia Treatment Stop: 11/11/20 16:29 Miscellaneous Information (Pharmacy Glycemic Mgmt Consult) 1 ea N/A UD [facility] Stop: 11/11/20 14:36 Morphine Sulfate (Morphine Sulfate 2 Mg/Ml Carp) 2 mg IV Q2H PRN PRN Reason: chest pain Stop: 10/26/20 13:36 Multivitamins (Multivitamin Tab) 1 tab PO DAILY [facility] Stop: 11/12/20 08:59 Last Admin: 10/14/20 08:11 Dose: 1 tab Documented by: Ondansetron HCl (Ondansetron Inj 2 Mg/Ml 2 Ml Vial) 4 mg IV Q6H PRN PRN Reason: Nausea And Vomiting Stop: 11/11/20 11:40 PG Care Time/CCT Total # of Minutes Spent Total Time Spent with Patient: Total time spent is greater than 50% in coordination of care (as documented) at patient's floor/unit and/or counseling patient: Coding Level of Care Code 69954 Subseq Hosp Care Lvl 3 Diagnoses Atrial fibrillation I48.91 STEMI (ST elevation myocardial infarction) I21.3 Involved coronary artery: unspecified coronary artery COVID-19 U07.1 Hematuria R31.9 Other inflammatory diseases of prostate N41.8 Hypertension I10 Type 2 diabetes mellitus E11.9 Ileus K56.7 Urinary retention R33.9 Macrocytic anemia D53.9 DVT prophylaxis Z29.9 (1) STEMI (ST elevation myocardial infarction) Involved coronary artery: unspecified coronary artery Qualified Code(s): I21.3 - ST elevation (STEMI) myocardial infarction of unspecified site
--- NOTE | 2020-10-14 22:44 | Cardiology Progress Note ---
Date of Service October 14, 2020 Assessment & Plan (1) STEMI (ST elevation myocardial infarction): --Post primary PCI with 2 DAISY to RCA 2. Severe non-culprit CAD involving OM2 3. Persistent Atrial fibrillation 4. Preserved LV function, EF55% with inferoposterior hypokinesis 5. Anemia, prior hematuria 6. Covid19 infection 7. Type 2 DM No recurrent angina. Troponin peaked. Remains in AF but better rate controlled on metoprolol 150 daily dose LV function preserved. No heart failure on exam Worsened anemia. Receiving 2 units RBCs -- Long-term recommend trial of dual therapy with clopidogrel, anticoagulation -- Discontinue aspirin now -- Transition lovenox to Eliquis -- Continue current metoprolol --> increase as needed for target resting HR <90 post [place] -- Continue current statin, lisinopril -- If blood counts don't respond to transfusion or further evidence of bleeding than would favor avoiding anticoagulation long-term Appreciate hospital medicine care. Admission and Anticipated Discharge Date Admission Date: October 12, 2020 Subjective Feeling well this afternoon. No chest pain. Breathing near baseline. Denies palpitations. No BMs since admission. Denies hematuria. Yesterday evening went into AF with RVR up to 140s. beta-dione increased. started on anticoagulation with BID lovenox. Today Hb down to 7.3. Transfusion this afternoon. Review of Systems Review of Systems: All systems reviewed & are unremarkable except as noted in HPI & below Physical Exam Physical Exam: General: Comfortable, no acute distress Eyes: Sclerae anicteric Neck: No JVD. Lungs: Clear to auscultation bilaterally Cardiac: Irregularly irregular Abdomen: Soft, nontender Psych: Alert orient x3, normal affect and mood Extremities/Vascular: -- 2+ radial bilaterally. No hematoma/ecchymosis at Rt radial access site. -- No edema Results & Data ([facility]) Vital Signs (Past 12 Hours) Vital Signs Temp Pulse Pulse Resp BP BP Pulse Ox 10/14/20 19:33 98.2 F 82 18 120/67 95 10/14/20 18:32 84 109/66 96 10/14/20 18:30 83 96 10/14/20 18:17 90 121/67 97 10/14/20 18:15 86 97 10/14/20 18:02 90 119/71 98 10/14/20 18:00 98.1 F 87 92 10/14/20 17:50 98.1 F 10/14/20 17:48 91 H 126/63 98 10/14/20 17:45 84 92 10/14/20 17:30 85 93 10/14/20 17:20 98.1 F 97 H 92 10/14/20 17:05 98.1 F 89 20 123/73 97 10/14/20 16:46 81 16 119/76 98 10/14/20 15:30 98.2 F 79 18 111/69 96 10/14/20 14:30 98.1 F 79 20 106/62 97 10/14/20 14:00 98.1 F 89 20 106/64 97 10/14/20 13:32 84 108/54 L 96 10/14/20 13:30 97.9 F 90 20 108/54 L 96 10/14/20 13:17 83 97/62 L 96 10/14/20 13:15 98.1 F 88 20 97/62 L 97 10/14/20 13:02 82 110/59 L 97 10/14/20 13:00 97.9 F 85 18 110/59 L 96 10/14/20 12:41 86 114/60 95 10/14/20 12:00 89 96 10/14/20 11:41 80 103/60 95 10/14/20 11:40 98.1 F 75 20 103/60 94 10/14/20 11:00 81 96 PG Care Time/CCT Total # of Minutes Spent Total Time Spent with Patient: Total time spent is greater than 50% in coordination of care (as documented) at patient's floor/unit and/or counseling patient: Coding Level of Care Code 59203 Subseq Hosp Care Lvl 3 Diagnoses STEMI (ST elevation myocardial infarction) I21.3 Involved coronary artery: unspecified coronary artery (1) STEMI (ST elevation myocardial infarction) Involved coronary artery: unspecified coronary artery Qualified Code(s): I21.3 - ST elevation (STEMI) myocardial infarction of unspecified site
[2020-10-15] MEDS ORDERED: lisinopril 5 MG TAB PO SCH
[2020-10-15] MEDS ORDERED: CLOPIDOGREL BISULFATE 75 MG TAB PO SCH
[2020-10-15] MEDS ORDERED: METOPROLOL TARTRATE 100 MG TAB PO SCH
[2020-10-15] MEDS ORDERED: ATORVASTATIN 40 MG TAB PO SCH
[2020-10-15] MEDS: INSULIN ASPART 100 UNITS/ML 3 ML PEN SC SCH ×3 (00:55→09:47)
[2020-10-15] MEDS: SODIUM CHLORIDE 0.9% 1000ML 1,000 ML IV SCH (07:28)
[2020-10-15] MEDS ORDERED: INSULIN ASPART 100 UNITS/ML 3 ML PEN SC ONE (09:00)
[2020-10-15] MEDS: lisinopril 5 MG TAB PO SCH (09:05)
[2020-10-15] MEDS: AMOXICILLIN 500 MG CAP PO SCH ×2 (09:05→13:09)
[2020-10-15] MEDS: METOPROLOL TARTRATE 25 MG TAB PO SCH (09:05)
[2020-10-15] MEDS: ATORVASTATIN 40 MG TAB PO SCH (09:06)
[2020-10-15] MEDS: FINASTERIDE 5 MG TAB PO SCH (09:06)
[2020-10-15] MEDS: MULTIVITAMIN TAB PO SCH (09:06)
[2020-10-15] MEDS: CLOPIDOGREL BISULFATE 75 MG TAB PO SCH (09:06)
[2020-10-15] MEDS: ENOXAPARIN 100 MG/1ML SYR SQ SCH (09:15)
[2020-10-15] MEDS ORDERED: APIXABAN 5 MG TABLET PO SCH ×2 (09:15)
[2020-10-15 09:18] LABS: Hematocrit (blood only) 27.7 % (42-52); Hemoglobin 9.4 g/dL (14.0-18.0); Mean Corpuscular Hemoglobin 35.6 pg (25-34); Mean Corpuscular Hgb Conc 33.9 g/dL (32-36); Mean Corpuscular Volume 104.9 fL (80-100); Mean Platelet Volume 9.3 fL (7.4-10.4); Platelet Count 376 K/uL (130-400); RDW Coefficient of Variation 19.1 % (11.5-14.5); RDW Standard Deviation 71.8 fL (36.4-46.3); Red Blood Count 2.64 M/uL (4.7-6.1); White Blood Count 7.29 K/uL (4.8-10.8)
[2020-10-15 09:35] LABS: Basophils # (auto) 0.01 K/uL (0-0.2); Basophils % (auto) 0.1 %; Immature Granulocytes # (auto) 0.07 K/uL (0.00-0.02); Lymphocytes # (auto) 1.92 K/uL (1.2-3.4); Lymphocytes % (auto) 26.3 %; Monocytes # (auto) 1.76 K/uL (0.11-0.59); Monocytes % (auto) 24.1 %; Neutrophils # (auto) 3.53 K/uL (1.4-6.5); Neutrophils % (auto) 48.5 %
[2020-10-15] MEDS ORDERED: POLYETHYLENE (MIRALAX) 17 GM PACK PO PRN (09:43)
[2020-10-15 09:50] LABS: BUN Creatinine Ratio 35.4 (10-20); Calcium 8.9 mg/dl (8.5-10.1); Creatinine Clr Calc Pharmacy 82.5 ml/min; Est GFR (African American) 96.5; Est GFR (Non-African American) 83.3; Potassium 3.5 mmol/L (3.5-5.1)
[2020-10-15] MEDS ORDERED: INSULIN ASPART 100 UNITS/ML 3 ML PEN SC SCH (11:30)
[2020-10-15] MEDS ORDERED: INSULIN GLARGINE SOLOSTAR 100 UNITS/ML 3 ML PEN SC ONE (12:30)
--- NOTE | 2020-10-15 13:33 | Discharge Summary ---
Date of Service October 15, 2020 Admission HPI Per Admitting Provider Abdirahman Lara is an 89-year-old male with type 2 diabetes who presents to the ER with chest pain. The patient is very hard of hearing and is unable to give me much history. He reports chest pain started last night and has been ongoing throughout the night, severity 10/10 at worse, substernal, no radiation, unknown diaphoresis/nausea/SOB. He tells me he was in [facility] for 3 to 4 weeks however this was disputed by his daughter who reports he was there for 7 days (awaiting [place] discharge summary on admission). Discussed care with his daughter Nimco over the phone. She reports losing her mother (Mr. Lara's ) just in July. The patient lives alone and was getting better after grieving. He walks to the store regularly without any chest pain or shortness of breath and still dives his car. He was hospitalized in [place] on September 29 for hematuria which comes and goes for a lot of his life. 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 He was initially treated with a three-way catheter and frequent flushes however eventually had cauterization. He tested positive for COVID-19 on September 30, as far as his daughter is aware this was for asymptomatic testing prior to urological surgery. He was discharged to [facility] for rehabilitation on October 07 2020. Discussed with lab in [facility] - hemoglobin 8.2 on discharge from [facility] (lowest during hospitalization 7.7). His daughter reports he had no blood transfusions. Per [facility] documentation he was on amoxicillin 500 mg 3 times daily for UTI. In the ER the patient went directly to the cardiac Transport Tech due to ST elevations in inferior leads. Heavily calcified mid RCA occlusion with successful PCI of proximal to distal RCA with 2 long drug-eluting stents. Severe additional non- culprit coronary artery disease. The patient was seen in recovery of the cardiac Transport Tech and currently is having no chest pain. Principal Diagnosis ST elevation CA Discharge Exam Constitutional WD/WN, vitals as above Neck trachea midline, no thyromegaly Respiratory normal respiratory effort, lungs clear to auscultation Cardiovascular Rate/Rhythm: regular rate and + irregularly irregular Heart Sounds: normal S1 and normal S2; no murmur Vessels: no JVD Extremities: normal capillary refill; no edema Gastrointestinal (Abdomen) normal bowel sounds, soft, nontender, no hepatosplenomegaly Musculoskeletal no cyanosis or clubbing, extremities motor strength 5/5 Skin no rashes, warm and dry Neurologic patellar DTR's 2+ bilat, sensation intact and PERRL, EOMI, accommodation nl, no face palsy, no dysarthria Psychiatric A+Ox3, euthymic affect Lymphatic no cervical or axillary lymphadenopathy Discharge Data Allergies Allergy/AdvReac Type Severity Reaction Status Date / Time Sulfa (Sulfonamide Allergy Unknown Unknown Verified 10/12/20 13:08 Antibiotics) Consultations 10/12/20 09:54 Consult Cardiology Stat ED Decision to Admit Stat 10/12/20 11:47 Consult Cardiac Rehabilitation Routine Consult Case Management - Discharge Planning Routine Consult Field Sales Trainer Routine 10/12/20 11:58 Consult Health Information Management Stat Procedures Performed Operation Date: 10/12/20 09:45 Actual Procedures p Aspiration/PCI w/DAISY for Stemi - Raul Braswell MD p Cineradiography w/Routine Exam - Raul Braswell MD s Cath, Left with Cors and Vent - Raul Braswell MD s Cardiac Heart Alert - Raul Braswell MD Ordered Studies 10/12/20 09:37 CL Cath Imgs for PACS use only Stat Diabetes Follow up Diabetes Follow-up Needed for Newly Diagnosed Diabetes Hospital Course (1) Atrial fibrillation: new onset, occurred night of 12.10, rates well controlled increased Lopressor to 100mg BID treated with Lovenox for full anticoagulation initially change to Eliquis 5mg BID on discharge discussed with Dr. Braswell, he is in agreement with plan (2) STEMI (ST elevation myocardial infarction): Management per cardiology with aspirin, Plavix, metoprolol, lisinopril, atorvastatin increased metoprolol to 100mg BID to control HR with afib s/p PCI with x2 DAISY to RCA, severe non-culprit CAD LDL at goal of 47 HbA1c high at 8% troponin down to 10 on 10/14 due to afib and need for anticoagulation, plan for dual therapy with Eliquis and Plavix for stent walked in the hallway, no chest pain or pressure, will follow up with cardiology (3) COVID-19: Diagnosis 09/30. Symptoms suspected 2-3 days prior to this but unclear on set. CXR with infiltrates, subtle afebrile, on room air, no need for specific treatment such as dexamethasone (4) Hematuria: Avoid Wright catheter if possible to avoid further bleeding of his prostate. Continue antibiotics (amoxicillin) for "complicated UTI" told him to monitor closely for any hematuria as he is now on Eliquis and Plavix he should follow up with his urologist in [place] if he has any issues (5) Other inflammatory diseases of prostate: Unclear specific diagnosis from alf notes. HIM request for [facility] discharge summary. (6) Hypertension: Continue lisinopril increased metoprolol to 100mg BID for better HR control, resting HR is 80's (7) Type 2 diabetes mellitus: HbA1c 8% Hold metformin Basal bolus regimen ordered used NPH insulin when he got dexamethasone initially resume Metformin on discharge (8) Ileus: Notable history of this. moving his bowels (9) Urinary retention: Recent history of this secondary to hematuria with clots. Bladder scan q shift. Call provider if PVR > 400ml. (10) Macrocytic anemia: Hb down to 7.3 10/14 given his recent STEMI transfused two units PRBC gave Lasix 20mg IV in between units repeat Hb on 10/15 up to 9.4 which is appropriate rise can follow CBC as outpatient (11) DVT prophylaxis: heparin SC Total Time Total Time Spent Total Time Spent (In Minutes): 37 minutes Total Time Includes: Examination of the Patient, Discharge Planning and Medication Reconciliation Discharge Plan Discharge Items Patient Disposition: Home - Home Health Services Reason For Visit: STEMI Discharge Diagnosis: STEMI Atrial fibrillation COVID 19 Condition on Discharge: Good Goals: stay well nourished, well hydrated follow up with cardiology Activity: Per Instructions section Bathing: No limitations Sexual Activity: Wait until after follow-up appointment Exercise/Sports: Gradually increase as tolerated Driving/Machine Use: Resume 3 days after discharge Weightbearing: Full weightbearing Non-emergency contact: Primary Care Provider and Lactation Coordinator Call non-emergency contact if: you have any medication questions and your symptoms worsen Follow-up/Referrals: Raul Braswell MD [Physician] - 11/08/20 10:00 am (3-4 weeks) Diet: Heart Healthy Addtl Attending Provider Instructions: Medications: I sent prescriptions to the [facility] pharmacy in [place], will give you 3 day supply to take home since likely not able to get them until tomorrow - PLAVIX: 75 mg daily to keep stent open - ELIQUIS: 5mg twice a day for anticoagulation, stroke prevention with atrial fibrillation - METOPROLOL: dose increased to 100mg twice a day for heart rate control with atrial fibrillation, working well while here - LIPITOR: 40mg daily, stabilizes plaques and lowers cholesterol, reduces risk of future heart attack - LISINOPRIL: 5mg daily, recommended with coronary disease to preserve heart function STEMI: treated with emergent heart cath and drug eluting stent placement tolerated well, stable, no chest pain will use Plavix, Eliquis, metoprolol, lisinopril and Lipitor to manage risks recommend follow up with Dr. Braswell in 3-4 weeks with cardiology slowly increase physical activity level over next few weeks, okay to take walks Atrial fibrillation new diagnosis, arrhythmia, heart rate well controlled likely could be related to acute CA, may be permanent or temporary treat with higher dose of metoprolol and added Eliquis 5mg twice a day for stroke prevention COVID 19: no hypoxia, no clinical signs of pneumonia, no fever remain isolated 10 days from initial positive test History of hematuria: watch closely for any bleeding, call your urologist if you have issues you are now on Plavix and Eliquis which pose higher bleeding risks however, you need these medications to keep stent open and prevent stroke with atrial fibrillation Pending Studies at Discharge: No Stand-Alone Forms: My [facility] [employer], Smoking Cessation Medications and DC Order Prescriptions: New atorvastatin 40 mg Tablet 40 mg PO QAM 30 Days Qty: 30 RF: 3 clopidogrel 75 mg Tablet 75 mg PO QAM 30 Days Qty: 30 RF: 3 lisinopril [Zestril] 5 mg Tablet 5 mg PO QAM 30 Days Qty: 30 RF: 3 Eliquis 5 mg Tablet 5 mg PO BID 30 Days Qty: 60 RF: 3 metoprolol tartrate 100 mg tablet 100 mg PO BID 30 Days Qty: 60 RF: 3 Continued multivitamin Tablet 1 tab PO DAILY RF: 0 acetaminophen 650 mg Tablet 650 mg PO Q6H PRN (Reason: Pain) RF: 0 amoxicillin 500 mg Tablet 500 mg PO TID RF: 0 benzonatate [Tessalon Perles] 100 mg Capsule 100 mg PO Q8H PRN (Reason: Cough) RF: 0 bisacodyl [Dulcolax (bisacodyl)] 10 mg Suppository 10 mg FL DAILY PRN (Reason: Constipation) RF: 0 finasteride [Proscar] 5 mg Tablet 5 mg PO DAILY RF: 0 omega-3 fatty acids Capsule 2,000 mg PO BID RF: 0 melatonin 5 mg Tablet 5 mg PO HS PRN (Reason: Sleep) RF: 0 Discontinued metoprolol tartrate 50 mg Tablet 50 mg PO BID RF: 0 Discharge Orders: Discharge Order (Routine); Ordered 10/15/20 Ordered By: Jack Abrams Admission Data Admit Date/Time: 10/12/20 11:47 Attending Provider: Jack Abrams Admit Provider: Raul Braswell Primary Care Provider: Kaushik Hanks Other Providers: [facility] ; Raul Braswell ; Adonay Hook ; Miles Honeycutt Other Interventions: Discharge Summary Assessment (RN) Last Done: 10/15/20 14:26 Coding Level of Care Code D/C Day Management >30 mins Diagnoses Atrial fibrillation I48.91 STEMI (ST elevation myocardial infarction) I21.3 Involved coronary artery: unspecified coronary artery COVID-19 U07.1 Hematuria R31.9 Other inflammatory diseases of prostate N41.8 Hypertension I10 Type 2 diabetes mellitus E11.9 Ileus K56.7 Urinary retention R33.9 Macrocytic anemia D53.9 DVT prophylaxis Z29.9
[2020-10-15] MEDS ORDERED: CLOPIDOGREL BISULFATE 75MG Homepack PO ONE (14:30)
[2020-10-15] MEDS ORDERED: INSULIN GLARGINE SOLOSTAR 100 UNITS/ML 3 ML PEN SC SCH (21:00)
== END 2020-10-15 16:37 | disposition home health service (06) | DRG 246 ==
LOC: ED 09:24 → CC 09:52 → SUATTDRO 11:47 → 2E 11:47